=== PATIENT | male | born 1970 | race Caucasian/White ===

== ENCOUNTER 2017-10-02 06:51 | Day surgery (SDC) | payer OTHER ==
[~2017-10-02] VITALS: Ht 162.6 cm; Wt 83.9 kg
[2017-10-02] VITALS (15 sets, daily range): BP systolic 112–179; BP diastolic 83–110
[2017-10-02] MEDS ORDERED: HEParin (CATH LAB) 2,000 ML IV ONE (06:58)
[2017-10-02] MEDS: NS IV 1000 ML 1,000 ML IV SCH (07:18)
[2017-10-02 07:24] LABS: HEMOGLOBIN 15.1 G/DL (13.3-17.7); MEAN PLATELET VOLUME 9.7 FL (7.4-10.4); RED BLOOD COUNT 5.08 10^6/uL (4.35-5.85); RED CELL DISTRIBUTION WIDTH 12.9 % (10.0-14.5); WHITE BLOOD COUNT 8.6 10^3/uL (4.3-11.0)
[2017-10-02 07:32] LABS: INR 0.9 (0.8-1.4); PROTHROMBIN TIME PATIENT 12.3 SEC (12.2-14.7)
[2017-10-02] MEDS ORDERED: INSU100V5 SQ (07:38)
[2017-10-02] MEDS ORDERED: ATOR40TA70 PO (07:38)
[2017-10-02] MEDS ORDERED: BUDE10.22 IH (07:38)
[2017-10-02] MEDS ORDERED: INSU100V SQ ×3 (07:38)
[2017-10-02] MEDS ORDERED: AMLO1TAB PO (07:38)
[2017-10-02] MEDS ORDERED: SITA1TAB6 PO (07:38)
[2017-10-02] MEDS ORDERED: MELA5TAB21 PO (07:38)
[2017-10-02] MEDS ORDERED: ASCO10006 PO (07:38)
[2017-10-02] MEDS ORDERED: BUPR150T9 PO ×2 (07:38)
[2017-10-02] MEDS ORDERED: NITR0.4T39 SL (07:38)
[2017-10-02] MEDS ORDERED: MULT-517 PO (07:38)
[2017-10-02] MEDS ORDERED: BUSP15TA60 PO (07:38)
[2017-10-02] MEDS ORDERED: RT-ALBUINH IH (07:38)
[2017-10-02] MEDS ORDERED: METH-336 PO (07:38)
[2017-10-02] MEDS ORDERED: MAGN250T13 PO (07:38)
[2017-10-02] MEDS ORDERED: ALPR0.25 PO (07:38)
[2017-10-02] MEDS ORDERED: METO-387 PO (07:39)
[2017-10-02 07:40] LABS: ALANINE AMINOTRANSFERASE 35 U/L (0-55); ALBUMIN 4.7 GM/DL (3.2-4.5); ALKALINE PHOSPHATASE 61 U/L (40-136); BILIRUBIN,TOTAL 0.5 MG/DL (0.1-1.0); BUN/CREATININE RATIO 14; CALCIUM 9.8 MG/DL (8.5-10.1); CARBON DIOXIDE 26 MMOL/L (21-32); CHLORIDE 102 MMOL/L (98-107); CHOLESTEROL 123 MG/DL (< 200); CREATININE SERUM 0.95 MG/DL (0.60-1.30); GFR ESTIMATED > 60; GLUCOSE 179 MG/DL (70-105); HDL CHOLESTEROL 41 MG/DL (40-60); POTASSIUM 3.5 MMOL/L (3.6-5.0); SODIUM 139 MMOL/L (135-145); TOTAL PROTEIN 7.7 GM/DL (6.4-8.2); TRIGLYCERIDES 130 MG/DL (<150); VLDL CHOLESTEROL 26 MG/DL (5-40)
[2017-10-02] MEDS ORDERED: METO-351 PO (07:44)
[2017-10-02] MEDS ORDERED: diphenhydrAMINE 50 MG/ML INJ (BENADRYL) ONE (07:50)
[2017-10-02] MEDS ORDERED: fentaNYL INJECTION 100 MCG/2 ML AMP ONE (07:50)
[2017-10-02] MEDS ORDERED: MIDAZOLAM 5 MG/5 ML (VERSED) VIAL ONE (07:50)
[2017-10-02] MEDS ORDERED: LIDOCAINE 1% INJ 50 ML (XYLOCAINE) VIAL ONE (08:08)
[2017-10-02] MEDS ORDERED: HEParin 1000 UNIT/ML (10ML VIAL) FOR BOLUS ONE (08:22)
[2017-10-02] MEDS ORDERED: NITRO DRIP 25000 MCG/D5W 250 ML IV ONE (08:22)
[2017-10-02] MEDS ORDERED: EPTIFIBATIDE BOLUS 20 ML IV ONE (08:22)
[2017-10-02] MEDS ORDERED: CLOPIDOGREL 300 MG (PLAVIX) TABLET PO ONE (08:50)
[2017-10-02] MEDS ORDERED: ASPIRIN 81 MG CHEW (CHILDREN'S ASA) ONE (08:50)
[2017-10-02] MEDS ORDERED: NS IV 1000 ML 1,000 ML IV SCH (09:08)
--- NOTE | 2017-10-02 09:08 | Cardiac Procedure Note-CS/ASA ---
Pre-Procedure Note Pre-Op Procedure Note H&P Reviewed The H&P was reviewed, patient examined and no changes noted. Date H&P Reviewed: Oct 02, 2017 Time H&P Reviewed: 08:05 Conscious Sedation Pre-Proced Time Reviewed: 08:05 ASA Class: 3 Airway Mallampati Classification: (ho-chunk appropriate class) I. II. III, IV Lungs Heart ASA score ASA 1: a normal healthy patient ASA 2: a patient with a mild systemic disease (mid diabetes, controlled hypertension, obesity ASA 3: a patient with a severe systemic disease that limits activity (angina , COPD, prior Myocardial infarction) ASA 4: a patient with an incapacitating disease that is a constant threat to life (CHF, renal failure) ASA 5: a moribund patient not expected to survive 24 hrs. (ruptured aneurysm) ASA 6: a declared brain patient whose organs are being harvested. For emergent operations, add the letter E after the classification Grade 2 Sedation Plan: Analgesia, Amnesia, Plan communicated to team members, Discussed options with patient/fam, Discussed risks with patient/fam Note The patient is an appropriate candidate to undergo the planned procedure, sedation, and anesthesia. The patient immediately re-assessed prior to indication. TAMMY HANNON MD FACP FAC CCDS Oct 02, 2017 09:08
[2017-10-02] MEDS ORDERED: PATIENT MAY USE OWN MEDS, ALL PO SCH (09:15)
--- NOTE | 2017-10-02 10:30 | CARDIAC CATHETERIZATION ---
DATE OF SERVICE: 10/02/2017 CARDIAC CATHETERIZATION AND CORONARY INTERVENTION REPORT HISTORY: The patient is a 47-year-old man who has a history of mid right coronary artery stenting at age 25, when he had presented with a heart attack. He is currently experiencing symptoms suggestive of increasing angina. Cardiac catheterization was carried out after having obtained an informed consent. PROCEDURE: He was brought to the cardiac catheterization laboratory in a fasting state. Right groin was prepared and draped in usual sterile fashion. 1% Lidocaine was used as local anesthesia. Modified Seldinger technique was used to advance a 5-Greenlandic sheath in right femoral artery. A 5-Greenlandic JL3.5 catheter was used for left coronary angiography. A 5-Greenlandic JR4 catheter used for right coronary angiography. A 5-Greenlandic pigtail catheter was used for left heart catheterization, left ventricular coronary angiography. PERCUTANEOUS INTERVENTION TO THE DISTAL RIGHT CORONARY ARTERY: Following completion of the diagnostic procedure, we carried out percutaneous intervention to an 80 to 90% stenosis in the distal posterolateral branch of the right coronary artery. This appeared to be the culprit lesion in causing the patient's angina pectoris. We used a 6-Greenlandic JR4 guide catheter with side holes. We advanced a choICE floppy wire across the lesion and the tip was placed in the distal vessel. We carried out balloon angioplasty with Emerge 1.5 x 12 mm balloon and then stented the lesion with a Mini Vision 2.0 x 15 mm stent. Subsequent angiography revealed 0% residual stenosis and flow throughout the vessel is normal (RAUL 3). He tolerated the procedure well. Angiography of the right femoral artery was carried through the sheath after removal of angioplasty equipment. Mynx was used to achieve hemostasis. HEMODYNAMICS: Left ventricular end-diastolic pressure following coronary angiography was 12 mmHg. There was no significant pressure gradient on pullback across the aortic valve. Ascending aortic pressure was 136/90 with a mean of 111 mmHg. LEFT VENTRICULAR ANGIOGRAPHY: Left ventricular angiography was carried out in the right anterior oblique projection. Global left ventricular systolic function appears normal. No regional wall motion is seen on this view. There does not appear to be significant mitral regurgitation. Left ventricular ejection fraction is approximately 65%. CORONARY ANGIOGRAPHY: Left main coronary artery is free of significant disease. Left anterior descending artery does not exhibit significant disease. Left circumflex artery is small and nondominant and does not exhibit significant disease. Right coronary artery is dominant and has a patent stent in its mid portion, which is known to be a Gianturco-Roubin stent placed in the 1995. The size of the stent is not known. This stent does not exhibit significant in-stent restenosis. The femoral posterolateral branch of the right coronary artery had 80 to 90% proximal to mid vessel stenosis to which successful intervention was carried out as detailed above. Following deployment of a Mini Vision 2.0 x 15 mm stent, there is no significant residual stenosis and flow throughout the vessel is normal. CONCLUSIONS: 1. Coronary artery disease consisting of 80 to 90% stenosis in the terminal posterolateral branch of the right coronary artery to which successful percutaneous intervention was carried out. Following deployment of a Mini Vision 2.0 x 15 mm stent, there is no significant residual stenosis. A Gianturco-Roubin stent in the mid right coronary artery is found to be patent and without significant in-stent restenosis. The rest of the coronary vessels have mild plaque. 2. Normal left ventricular end-diastolic pressure. 3. Normal left ventricular systolic function with left ventricular ejection fraction of approximately 65%. DISCUSSION AND RECOMMENDATIONS: Aspirin is being continued. Beta blockers are being continued. Plavix has been added to the regimen. Statin therapy will be continued. Job ID: [id number] DocumentID: [id number] Dictated Date: 10/02/2017 09:03:35 Cook Dinner Date: 10/02/2017 10:30:01 Dictated By: TAMMY HANNON MD, MA, FACP, FACC,
[2017-10-02] MEDS ORDERED: INSULIN LISPRO SQ SCH ×2 (12:00→17:00)
[2017-10-02] MEDS ORDERED: ALPRAZolam 0.25 MG (XANAX) TAB PO PRN (13:13)
[2017-10-02] MEDS ORDERED: ACETAMINOPHEN 325 MG TABLET ONE (13:26)
[2017-10-02] MEDS ORDERED: ACETAMINOPHEN 325 MG TABLET PO PRN (13:45)
[2017-10-02] MEDS ORDERED: RT-ALBUTEROL SULF 2.5 MG/3 ML PRE-MIX VIAL IH PRN (14:15)
[2017-10-02] MEDS ORDERED: NITROGLYCERIN 0.4 MG SL TABS BTL 25'S SL PRN (14:15)
[2017-10-02] MEDS ORDERED: buPROPion SR 150 MG (WELLBUTRIN SR) TAB PO SCH (21:00)
[2017-10-02] MEDS ORDERED: SYMBICORT 160/4.5 MCG INHALER 6 GM (NON-FORMULARY) IH SCH (21:00)
[2017-10-02] MEDS ORDERED: ASCORBIC ACID (VIT C) 500 MG TABLET PO SCH (21:00)
[2017-10-02] MEDS ORDERED: MELATONIN 3 MG TABLET PO SCH (21:00)
[2017-10-02] MEDS ORDERED: inSUlin DETERMIR 1000 UNITS/10 ML VIAL (LEVEMIR) SQ SCH (21:00)
[2017-10-03] VITALS: BP 130/80
[2017-10-03 04:00] VITALS: BP 149/94
[2017-10-03 04:22] LABS: HEMOGLOBIN 13.5 G/DL (13.3-17.7); MEAN PLATELET VOLUME 9.5 FL (7.4-10.4); RED BLOOD COUNT 4.58 10^6/uL (4.35-5.85); RED CELL DISTRIBUTION WIDTH 13.2 % (10.0-14.5); WHITE BLOOD COUNT 6.7 10^3/uL (4.3-11.0)
[2017-10-03] MEDS: NS IV 1000 ML 1,000 ML IV SCH (04:31)
[2017-10-03 04:50] LABS: BUN/CREATININE RATIO 13; CALCIUM 8.9 MG/DL (8.5-10.1); CARBON DIOXIDE 24 MMOL/L (21-32); CHLORIDE 105 MMOL/L (98-107); CREATININE SERUM 0.76 MG/DL (0.60-1.30); GFR ESTIMATED > 60; GLUCOSE 208 MG/DL (70-105); POTASSIUM 3.4 MMOL/L (3.6-5.0); SODIUM 139 MMOL/L (135-145)
[2017-10-03] MEDS ORDERED: MULTIVIT W/MINERALS TAB (THERAGRAN M) PO SCH (07:00)
[2017-10-03] MEDS ORDERED: INSULIN LISPRO SQ SCH (07:00)
--- NOTE | 2017-10-03 08:30 | Progress Note-Cardiology ---
Cardiology SOAP Progress Note Subjective: Up ambulating in the rooms. No c/o CP, dyspnea, palpitations, syncope or near syncope. No c/o right groin discomfort. States he is feeling much better. Objective: I&O/Vital Signs 10/03/17 10/03/17 10/03/17 10/03/17 07:00 08:50 10:05 10:58 Temp 97.3 Pulse 80 88 Resp 16 B/P (MAP) 158/103 (121) 143/64 (90) Pulse Ox 97 O2 Delivery Room Air Weight (Pounds): 185 Weight (Ounces): 0.0 Weight (Calculated Kilograms): 83.546395 Side: right Groin site without hematoma: Yes Condition: DP/PT pulses palpable, extremity w/d/p Bruising: mild bruising Constitutional: AAO x 3 Respiratory: No accessory muscle use, No respiratory distress; chest expansion is symmetric, chest is bilaterally symmetric, lungs clear to auscultation Cardiovascular: regular rate-rhythm; No JVD; S1 and S2 Gastrointestional: No tender; soft, audible bowel sounds Extremities: no lower extremity edema bilateral Neurologic/Psychiatric: grossly intact Skin: No rash, No ulcerations Results/Procedures: Labs Laboratory Tests 10/02/17 21:23: Glucometer 106 10/03/17 04:05: White Blood Count 6.7, Red Blood Count 4.58, Hemoglobin 13.5, Hematocrit 39L, Mean Corpuscular Volume 86, Mean Corpuscular Hemoglobin 30, Mean Corpuscular Hemoglobin Concent 34, Red Cell Distribution Width 13.2, Platelet Count 234, Mean Platelet Volume 9.5, Sodium Level 139, Potassium Level 3.4L, Chloride Level 105, Carbon Dioxide Level 24, Anion Gap 10, Blood Urea Nitrogen 10, Creatinine 0.76, Estimat Glomerular Filtration Rate > 60, BUN/Creatinine Ratio 13, Glucose Level 208H, Calcium Level 8.9 Microbiology 10/02/17 MRSA Screen - Final, Complete MRSA not isolated Procedures S/P cardiac cath with successful intervention on 10-03-18. Please refer to Dr. Fofana's cardiac cath report for details. A/P: Assessment: CAD - Last card cath and cor intervention n 10-04-17: Coronary artery disease consisting of 80 to 90% stenosis in the terminal posterolateral branch of the right coronary artery to which successful percutaneous intervention was carried out. Following deployment of a Mini Vision 2.0 x 15 mm stent, there is no significant residual stenosis. A Gianturco-Roubin stent in the mid right coronary artery is found to be patent and without significant in-stent restenosis. The rest of the coronary vessels have mild plaque. Normal left ventricular end-diastolic pressure. Normal left ventricular systolic function with left ventricular ejection fraction of approximately 65% H/O NE at age 25 DM 2 HTN HLP - followed by his PCP Asthma Chronic depression/anxiety Family h/o CAD (father had his first NE in his 50's) Plan: Discussed CV status with him OK to discharge home today Continue current medication regimen including Plavix, ASA, statin, and BB Out pt f/u in 2 weeks Physician Assessment Physician Assessment No cp or palp or syncope or groin discomfort Lungs: clear Cor: reg Ext: no c/c/e, mild bruising at site of cath access A&R * As documented in our note above that I updated (italics) and as noted below * I discussed at length with him and his his cath findings, interventions undertaken, current card regimen, and risk factor mod * Outpatient f/u is advised NAHUM MACHADO Oct 03, 2017 08:30 TAMMY FOFANA MD FACP FAC CCDS Oct 03, 2017 17:01
[2017-10-03] MEDS ORDERED: CLOP75TA28 PO (08:42)
[2017-10-03] MEDS ORDERED: ASPI-983 PO (08:42)
--- NOTE | 2017-10-03 08:44 | Discharge Inst-Cardiology ---
Discharge Inst-Cardiac Discharge Medications New Medications: Aspirin (Aspirin) 81 Mg Tab.chew 81 MG PO DAILY, #30 TAB 5 Refills Clopidogrel Bisulfate (Clopidogrel) 75 Mg Tablet 75 MG PO DAILY, #30 TAB 5 Refills Continued Medications: Albuterol Sulfate (Ventolin Hfa) 1 Puff Puff 2 PUFF IH PRN PRN for SHORTNESS OF BREATH, PUFF 1 PUFF = 90 MCG Alprazolam (Xanax) 0.25 Mg Tablet 0.125 MG PO PRN PRN for ANXIETY, TAB Amlodipine/Atorvastatin (Caduet 5 mg-10 mg Tablet) 1 Each Tablet 1 EACH PO DAILY, TAB Ascorbic Acid (Vitamin C) 1,000 Mg Tablet 1000 MG PO HS, TAB Atorvastatin Calcium (Atorvastatin Calcium) 40 Mg Tablet 40 MG PO DAILY, TAB Budesonide/Formoterol Fumarate (Symbicort 80-4.5 Mcg Inhaler) 10.2 Gm Hfa.aer.ad 2 PUFF IH BID, INHALER Bupropion HCl (Wellbutrin Sr) 150 Mg Tablet.er 150 MG PO DAILY for Smoking Cessation, TAB Bupropion HCl (Wellbutrin Sr) 150 Mg Tablet.er 300 MG PO HS for Smoking Cessation, TAB Buspirone HCl (Buspirone HCl) 15 Mg Tablet 60 MG PO DAILY, TAB Insulin Determir (Levemir) 1,000 Units/10 Ml Soln 60 UNITS SQ HS, EA Insulin Lispro (Humalog) 100 Unit/1 Ml Vial 16 UNIT SQ AM, VIAL Insulin Lispro (Humalog) 100 Unit/1 Ml Vial 18 UNIT SQ LUNCH, VIAL Insulin Lispro (Humalog) 100 Unit/1 Ml Vial 16 UNIT SQ DINNER, VIAL Magnesium Oxide (Magnesium) 250 Mg Tablet 250 MG PO EVENING, TAB Melatonin (Melatonin) 5 Mg Tab.ir.er 5 MG PO HS Methylcellulose (Fiber) 500 Mg Tablet 1000 MG PO DAILY, TAB Metoprolol Succinate (Toprol Xl) 25 Mg Tab.er.24h 25 MG PO DAILY, TAB Multivitamin (Men's Multi-Vitamin) 1 Each Tablet 2 EACH PO DAILY, TAB Nitroglycerin (Nitroglycerin) 0.4 Mg Tab.subl 0.4 MG SL UD PRN for CHEST PAIN, TAB Sitagliptin Phos/Metformin HCl (Janumet 50-1,000 mg Tablet) 1 Each Tablet 1 EACH PO BID, TAB New, Converted or Re-Newed RX: Transmitted to Pharmacy Patient Instructions Patient Instructions: Please schedule follow up appointment to see Dr. Fofana in 1-2 weeks MELODIE Deutsch today and tomorrow. May resume home dose on Thursday, October 05, 2017 NAHUM MACHADO Oct 03, 2017 08:44
[2017-10-03] MEDS ORDERED: ASPI-999 PO (08:45)
[2017-10-03 08:50] VITALS: BP 158/103
[2017-10-03] MEDS ORDERED: ATORVASTATIN PO SCH (09:00)
[2017-10-03] MEDS ORDERED: METHYLCELLULOSE (CITRUCEL) 500 MG CAPLET PO SCH (09:00)
[2017-10-03] MEDS ORDERED: busPIRone 15 MG (BUSPAR) TABLET PO SCH (09:00)
[2017-10-03] MEDS ORDERED: AMLODIPINE PO SCH (09:00)
[2017-10-03] MEDS ORDERED: ASPIRIN E.C. 81 MG (ECOTRIN) TAB PO SCH (09:00)
[2017-10-03] MEDS ORDERED: CLOPIDOGREL 75 MG (PLAVIX) TABLET PO SCH (09:00)
[2017-10-03] MEDS ORDERED: ATORVASTATIN 40 MG (LIPITOR) TABLET PO SCH (09:00)
[2017-10-03] MEDS ORDERED: buPROPion SR 150 MG (WELLBUTRIN SR) TAB PO SCH (09:00)
[2017-10-03 10:05] VITALS: BP 143/64
== END 2017-10-03 10:58 | disposition home or self-care (01) ==
LOC: CATH 06:51 → ICU 09:10 → CATH 10-03 10:58
PROVIDERS: ATTEND Internal Medicine Cardiovascular Disease
DX: I25.10 Atherosclerotic heart disease of native coronary artery without angina pectoris (principal); E11.9 Type 2 diabetes mellitus without complications; I10 Essential (primary) hypertension; E78.2 Mixed hyperlipidemia; R00.0 Tachycardia, unspecified; J45.909 Unspecified asthma, uncomplicated; F41.9 Anxiety disorder, unspecified; F32.9 Major depressive disorder, single episode, unspecified; G47.11 Idiopathic hypersomnia with long sleep time; I25.2 Old myocardial infarction; Z82.49 Family history of ischemic heart disease and other diseases of the circulatory system; Z95.5 Presence of coronary angioplasty implant and graft; Z79.02 Long term (current) use of antithrombotics/antiplatelets; Z79.82 Long term (current) use of aspirin; Z79.899 Other long term (current) drug therapy
CPT/HCPCS: 36415; 80048; 80053; 80061; 82962; 85027; 85610; 85730; 87081; 93005; 93458

== ENCOUNTER 2018-10-28 20:51 | Outpatient (CLI) | payer SELFPAY ==
[~2018-10-28 20:51] MED LIST: ALPR0.25 PO; AMLO1TAB PO; AMLO5TAB9 PO; ASCO10006 PO; ASCO500T7 PO; ASPI-983 PO; ASPI-999 PO; ATOR40TA70 PO; BUDE10.22 IH; BUPR150T9 PO; BUSP15TA60 PO; CLOP75TA28 PO; IBUP-2185 PO; INSU100I32 SQ; INSU100V SQ; INSU100V5 SQ; MAGN250T13 PO; MELA5TAB21 PO; METH-336 PO; METO-351 PO; METO-352 PO; METO-387 PO; MULT-517 PO; NITR0.4T39 SL; RT-ALBUINH IH; SITA1TAB6 PO
== END 2018-10-29 07:40 | disposition home or self-care (01) ==
LOC: SLEEP 20:51
PROVIDERS: ATTEND Otolaryngology Otolaryngology/Facial Plastic Surgery
DX: G47.33 Obstructive sleep apnea (adult) (pediatric) (principal); G47.10 Hypersomnia, unspecified; R06.83 Snoring; I10 Essential (primary) hypertension
CPT/HCPCS: 95810

== ENCOUNTER 2019-08-19 10:11 | Observation (INO) | payer SELFPAY ==
[2019-08-19] VITALS (11 sets, daily range): BP systolic 134–156; BP diastolic 84–94
[~2019-08-19] VITALS: Ht 160 cm; Wt 86.4 kg
[~2019-08-19 10:11] MED LIST changes: -METO-387 PO; +MTP25TSR PO
[2019-08-19] MEDS ORDERED: NS IV 1000 ML 1,000 ML ONE (10:15)
[2019-08-19] MEDS ORDERED: LIDOCAINE 1% INJ 20 ML 20 ML VIAL ONE (10:15)
[2019-08-19] MEDS ORDERED: HEParin (CATH LAB) 2,000 ML IV ONE (10:15)
[2019-08-19] MEDS ORDERED: NS IV 1000 ML 1,000 ML IV SCH (10:30)
[2019-08-19 10:48] LABS: HEMOGLOBIN 13.9 G/DL (13.3-17.7); MEAN PLATELET VOLUME 9.5 FL (7.4-10.4); RED CELL DISTRIBUTION WIDTH 13.1 % (10.0-14.5); WHITE BLOOD COUNT 7.8 10^3/uL (4.3-11.0)
[2019-08-19] MEDS ORDERED: BUSP30TA2 PO (11:05)
[2019-08-19] MEDS ORDERED: INSU100I32 SQ ×2 (11:05)
[2019-08-19] MEDS ORDERED: ISOS30TA3 PO (11:05)
[2019-08-19] MEDS ORDERED: TETR15DR73 OP (11:05)
[2019-08-19 11:06] LABS: INR 0.9 (0.8-1.4); PROTHROMBIN TIME PATIENT 12.7 SEC (12.2-14.7)
[2019-08-19 11:13] LABS: ALANINE AMINOTRANSFERASE 33 U/L (0-55); ALBUMIN 4.3 GM/DL (3.2-4.5); ALKALINE PHOSPHATASE 63 U/L (40-136); BILIRUBIN,TOTAL 0.4 MG/DL (0.1-1.0); BUN/CREATININE RATIO 16; CALCIUM 9.7 MG/DL (8.5-10.1); CARBON DIOXIDE 25 MMOL/L (21-32); CHLORIDE 104 MMOL/L (98-107); CHOLESTEROL 106 MG/DL (< 200); CREATININE SERUM 0.98 MG/DL (0.60-1.30); GFR ESTIMATED > 60; GLUCOSE 202 MG/DL (70-105); HDL CHOLESTEROL 36 MG/DL (40-60); SODIUM 138 MMOL/L (135-145); TOTAL PROTEIN 7.1 GM/DL (6.4-8.2); TRIGLYCERIDES 98 MG/DL (<150); VLDL CHOLESTEROL 20 MG/DL (5-40)
[2019-08-19] MEDS ORDERED: MIDAZOLAM 5 MG/5 ML (VERSED) VIAL ONE (12:55)
[2019-08-19] MEDS ORDERED: fentaNYL INJECTION 100 MCG/2 ML AMP ONE (12:55)
--- NOTE | 2019-08-19 13:12 | Cardiac Procedure Note-CS/ASA ---
Pre-Procedure Note Pre-Op Procedure Note H&P Reviewed The H&P was reviewed, patient examined and no changes noted. Date H&P Reviewed: Aug 19, 2019 Time H&P Reviewed: 13:11 Conscious Sedation Pre-Proced Time 13:11 ASA Score 3 For ASA 3 and 4: Consider anesthesia and medical clearance. Also, for patients with a history of failed moderate sedation consider anesthesia. Airway Lungs Heart ASA score ASA 1: a normal healthy patient ASA 2: a patient with a mild systemic disease (mid diabetes, controlled hypertension, obesity ASA 3: a patient with a severe systemic disease that limits activity (angina, COPD, prior Myocardial infarction) ASA 4: a patient with an incapacitating disease that is a constant threat to life (CHF, renal failure) ASA 5: a moribund patient not expected to survive 24 hrs. (ruptured aneurysm) ASA 6: a declared brain- patient whose organs are being harvested. For emergent operations, add the letter E after the classification Mallampati Classification Grade 2 Sedation Plan Analgesia, Amnesia, Plan communicated to team members, Discussed options with patient/fam, Discussed risks with patient/fam The patient is an appropriate candidate to undergo the planned procedure, sedation, and anesthesia. The patient immediately re-assessed prior to indication. TAMMY HANNON MD FACP FAC CCDS Aug 19, 2019 13:11
[2019-08-19] MEDS ORDERED: HEParin 1000 UNIT/ML (10ML VIAL) FOR BOLUS ONE (13:30)
[2019-08-19] MEDS ORDERED: EPTIFIBATIDE BOLUS 20 ML IV ONE (13:30)
[2019-08-19] MEDS ORDERED: NITRO DRIP 25000 MCG/D5W 250 ML IV ONE (13:35)
[2019-08-19] MEDS ORDERED: ASPIRIN 81 MG CHEW (CHILDREN'S ASA) ONE (13:51)
[2019-08-19] MEDS ORDERED: CLOPIDOGREL 300 MG (PLAVIX) TABLET PO ONE (13:51)
[2019-08-19] MEDS ORDERED: PATIENT MAY USE OWN MEDS, ALL PO SCH (14:15)
[2019-08-19] MEDS ORDERED: ALPRAZolam 0.25 MG (XANAX) TAB PO PRN (14:15)
[2019-08-19] MEDS ORDERED: NITROGLYCERIN 0.4 MG SL TABS BTL 25'S SL PRN (14:15)
--- NOTE | 2019-08-19 14:25 | CARDIAC CATHETERIZATION ---
DATE OF SERVICE: 08/19/2019 CARDIAC CATHETERIZATION REPORT The patient is a 49-year-old man who is known to have coronary artery disease. He has had recurrence of angina in the recent past. Cardiac catheterization was recommended. Informed consent was obtained for cardiac catheterization and possible ad hoc coronary intervention. DESCRIPTION OF PROCEDURE: He was brought to the cardiac catheterization laboratory in a fasting state. Right groin was prepared and draped in the usual sterile fashion. Lidocaine 1% was used for local anesthesia. Modified Seldinger technique was used to advance a 5-Fijian sheath in the right femoral artery, 5-Fijian JL3.5 catheter was used for left coronary angiography, 5-Fijian JR4 catheter for right coronary angiography, 5-Fijian pigtail catheter was used for left heart catheterization and left ventricular angiography. PERCUTANEOUS INTERVENTION TO RAMUS INTERMEDIUS ARTERY: Following completion of the diagnostic procedure, we carried out percutaneous intervention to an 80% mid vessel stenosis in the ramus intermedius. We exchanged the sheath over a wire for a 6-Fijian sheath. We gave 5000 units of intravenous heparin. A double bolus of Integrilin was given during the procedure. We used a 6-Fijian JL3.5 guide catheter to engage the left coronary artery. We used a ChoICE floppy wire to cross the lesion in the ramus intermedius and the tip was placed in the distal vessel. We advanced Xience Izabella 2.25 x 8 mm stent. This was carefully positioned and the stent was deployed at 20 atmospheres. Subsequent angiography revealed 0% residual stenosis at the previous site of 80% stenosis. The patient tolerated the procedure well. Angiography of the right femoral artery had been carried out through the sheath at the beginning the procedure. At the end of the procedure, Mynx was used to achieve hemostasis. He tolerated the procedure well. HEMODYNAMICS: Left ventricular end-diastolic pressure following coronary angiography was 19 mmHg. There was no significant pressure gradient on pullback across the aortic valve. Ascending aortic pressure was 125/79 with a mean of 100 mmHg. CORONARY ANGIOGRAPHY: Left main coronary artery does not exhibit significant obstructive disease. Left anterior descending artery has diffuse mild plaques. Ramus intermedius has 80% mid vessel stenosis and a 40% to 50% proximal stenosis. The mid vessel stenosis was stented with Xience Izabella 2.25 x 8 mm stent with reduction of stenosis to 0% residual. Left circumflex artery is small and nondominant and does not exhibit significant disease. Right coronary artery is dominant and has a patent stent in its mid portion that is known to be Gianturco-Roubin that was placed several years ago, for which he does not know details. The terminal posterolateral branch of the right coronary artery has a patent stent in its proximal and mid portions. The mid to distal part of this vessel has approximately 50% stenosis. LEFT VENTRICULAR ANGIOGRAPHY: Left ventricular angiography was carried out in the right anterior oblique projection. Global left ventricular systolic function is normal. No regional wall motion abnormality is seen. Left ventricular ejection fraction approximately 60%. CONCLUSIONS: 1. Coronary artery disease consisting of 80% mid vessel stenosis of the ramus intermedius to be successful stenting was carried out with Izabella 2.25 x 8 mm stent today. There is a patent stent in the mid right coronary artery (known to be a Gianturco-Roubin stent) and a patent stent in the proximal and mid portions of the distal posterolateral branch of the right coronary (known to be Mini Vision 2.0 x 15 mm). The rest of the coronary vessels have mild to moderate disease. 2. Normal global left ventricular systolic function with ejection fraction approximately 60%. 3. Elevated left ventricular end-diastolic pressure. DISCUSSION AND RECOMMENDATIONS: Dual antiplatelet therapy is being continued. Risk factor modification has been reviewed. Outpatient followup is advised. He remains hospitalized for observation after today's intervention procedure. Job ID: [id number] DocumentID: [id number] Dictated Date: 08/19/2019 14:04:38 Pediatric Speech Therapist Date: 08/19/2019 14:24:41 Dictated By: TAMMY HANNON MD, MA, FACP, FACC, MTDD
[2019-08-19] MEDS: NS IV 1000 ML 1,000 ML IV SCH ×2 (14:43→19:23)
[2019-08-19] MEDS ORDERED: PATIENT MAY USE OWN MEDS, ALL MC SCH (15:00)
[2019-08-19] MEDS ORDERED: RT-ALBUTEROL INHALER HFA (PROAIR HFA) 8.5 GM IH PRN (15:45)
[2019-08-19] MEDS ORDERED: INSULIN LISPRO 20 UNIT SQ SCH (17:00)
[2019-08-19] MEDS: INSULIN LISPRO U SQ SCH (17:11)
[2019-08-19] MEDS: ASCORBIC ACID (VIT C) 500 MG TABLET PO SCH (17:16)
[2019-08-19] MEDS ORDERED: RT-ADVAIR HFA 115/21 MCG PER PUFF IH SCH (20:00)
[2019-08-19] MEDS: Insulin Degludec (Tresiba Flextouch U-100) SQ SCH (20:31)
[2019-08-19] MEDS: buPROPion SR 150 MG (WELLBUTRIN SR) TAB PO SCH (20:32)
[2019-08-19] MEDS: SYMBICORT 160/4.5 MCG INHALER IH SCH (20:32)
[2019-08-19] MEDS: MELATONIN 5 MG PO SCH (20:34)
[2019-08-19] MEDS ORDERED: NON-FORMULARY MEDICATION 1 EA EA (Melatonin 5 MG) PO SCH (21:00)
[2019-08-19] MEDS ORDERED: NON-FORMULARY MEDICATION 1 EA EA (Budesonide/Formoterol Fumarate (Symbicort 80-4.5 Mcg Inh IH SCH (21:00)
[2019-08-20] VITALS (7 sets, daily range): BP systolic 140–168; BP diastolic 73–103
[2019-08-20 03:44] LABS: HEMOGLOBIN 13.1 G/DL (13.3-17.7); MEAN PLATELET VOLUME 9.7 FL (7.4-10.4); RED CELL DISTRIBUTION WIDTH 13.2 % (10.0-14.5); WHITE BLOOD COUNT 7.8 10^3/uL (4.3-11.0)
[2019-08-20 04:06] LABS: BUN/CREATININE RATIO 15; CALCIUM 9.1 MG/DL (8.5-10.1); CARBON DIOXIDE 25 MMOL/L (21-32); CHLORIDE 104 MMOL/L (98-107); CREATININE SERUM 0.84 MG/DL (0.60-1.30); GFR ESTIMATED > 60; GLUCOSE 191 MG/DL (70-105); POTASSIUM 3.7 MMOL/L (3.6-5.0); SODIUM 138 MMOL/L (135-145)
[2019-08-20] MEDS ORDERED: TETRAHYDROZOLINE (VISINE) 0.05% 15 ML BTL OU PRN (06:45)
[2019-08-20] MEDS: ASCORBIC ACID (VIT C) 500 MG TABLET PO SCH ×2 (07:34→17:10)
[2019-08-20] MEDS: INSULIN LISPRO U SQ SCH ×3 (07:34→17:25)
[2019-08-20] MEDS: MULTIVIT W/MINERALS TAB (THERAGRAN M) PO SCH (07:35)
--- NOTE | 2019-08-20 07:43 | Progress Note - Cardiology ---
Cardiology SOAP Progress Note Subjective: Sitting up in bed. C/O mid-sternal chest pressure, rates it 2/10 on 0-10 pain scale. He reports it is constant and has been present since yesterday. It does not change with activity. It does not radiate. No c/o dyspnea, palpitations. No c/o right groin discomfort. Objective: I&O/Vital Signs 08/20/19 08/21/19 08/21/19 08/21/19 23:40 01:00 03:25 07:00 Temp 36.4 36.4 Pulse 84 73 80 62 Resp 18 20 B/P (MAP) 163/89 (113) 162/92 (115) Pulse Ox 100 98 O2 Delivery Room Air Room Air 08/21/19 08/21/19 08:00 09:35 Temp 36.3 Pulse 83 Resp 30 B/P (MAP) 144/86 (105) Pulse Ox 97 O2 Delivery Room Air 08/21/19 00:00 Intake Total 1350 ml Balance 1350 ml Weight (Pounds): 188 Weight (Ounces): 0.0 Weight (Calculated Kilograms): 85.529760 Side: right Groin site without hematoma: Yes Condition: DP/PT pulses palpable, extremity w/d/p Bruising: mild bruising Constitutional: AAO x 3, well-developed, well-nourished Respiratory: No accessory muscle use, No respiratory distress; chest expansion is symmetric, chest is bilaterally symmetric, lungs clear to auscultation Cardiovascular: regular rate-rhythm; No JVD; S1 and S2 Gastrointestional: No tender; audible bowel sounds Extremities: no lower extremity edema bilateral Neurologic/Psychiatric: grossly intact (moves all extremities) Skin: No rash on exposed areas, No ulcerations on exposed areas Results/Procedures: Labs Laboratory Tests 08/20/19 11:47: Glucometer 196H 08/20/19 16:01: Glucometer 261H 08/20/19 20:42: Glucometer 168H 08/21/19 03:15: White Blood Count 6.3, Red Blood Count 4.67, Hemoglobin 13.7, Hematocrit 41, Mean Corpuscular Volume 87, Mean Corpuscular Hemoglobin 29, Mean Corpuscular Hemoglobin Concent 34, Red Cell Distribution Width 13.0, Platelet Count 237, Mean Platelet Volume 9.6, Neutrophils (%) (Auto) 51, Lymphocytes (%) (Auto) 39, Monocytes (%) (Auto) 8, Eosinophils (%) (Auto) 2, Basophils (%) (Auto) 0, Neutrophils # (Auto) 3.2, Lymphocytes # (Auto) 2.5, Monocytes # (Auto) 0.5, Eosinophils # (Auto) 0.1, Basophils # (Auto) 0.0, Sodium Level 140, Potassium Level 3.8, Chloride Level 104, Carbon Dioxide Level 24, Anion Gap 12, Blood Urea Nitrogen 13, Creatinine 1.00, Estimat Glomerular Filtration Rate > 60, BUN/Creatinine Ratio 13, Glucose Level 248H, Calcium Level 9.5, Magnesium Level 2.0 Microbiology 08/19/19 MRSA Screen - Final, Complete MRSA not isolated Procedures S/P cardiac cath with successful intervention. Please refer to cardiac cath report of 08-19-2019 A/P: Assessment: CAD - consisting of 80% mid vessel stenosis of the ramus intermedius to be successful stenting was carried out with Izabella 2.25 x 8 mm stent. There is a patent stent in the mid right coronary artery (known to be a Gianturco-Roubin stent) and a patent stent in the proximal and mid portions of the distal posterolateral branch of the right coronary (known to be Mini Vision 2.0 x 15 mm). The rest of the coronary vessels have mild to moderate disease. Normal global left ventricular systolic function with ejection fraction approximately 60%. Elevated left ventricular end-diastolic pressure. Per cardiac cath of Aug Mild ARDEN and hypertension on sleep studies of October 2018. Currently is noncompliant with CPAP H/O HI at age 25 DM 2 HTN HLP - followed by his PCP Asthma Chronic depression/anxiety Family h/o CAD (father had his first HI in his 50's) Plan: S/P cardiac cath with successful intervention C/O non-specific chest discomfort Start PPI NAHUM MACHADO Aug 20, 2019 07:43
[2019-08-20] MEDS: SYMBICORT 160/4.5 MCG INHALER IH SCH ×2 (08:53→21:20)
[2019-08-20] MEDS: CLOPIDOGREL 75 MG (PLAVIX) TABLET PO SCH (08:54)
[2019-08-20] MEDS: BUSPIRONE HCL 15 MG PO SCH (08:55)
[2019-08-20] MEDS: ISOSORBIDE MONONITRATE 30 MG (IMDUR) TAB PO SCH (08:55)
[2019-08-20] MEDS: meTOproloL SUCCINATE 50 MG (TOPROL XL) TAB PO SCH (08:56)
[2019-08-20] MEDS: buPROPion SR 150 MG (WELLBUTRIN SR) TAB PO SCH ×2 (08:57→21:17)
[2019-08-20] MEDS: amLODIPine 5 MG (NORVASC) TAB PO SCH (08:58)
[2019-08-20] MEDS: ASPIRIN 81 MG CHEW (CHILDREN'S ASA) PO SCH (08:59)
[2019-08-20] MEDS ORDERED: PANTOPRAZOLE 40 MG (PROTONIX) TAB PO SCH (09:00)
[2019-08-20] MEDS ORDERED: MULTIVITAMIN PO SCH (09:00)
[2019-08-20] MEDS ORDERED: CLOPIDOGREL 75 MG (PLAVIX) TABLET PO SCH (09:00)
[2019-08-20] MEDS: Insulin Degludec (Tresiba Flextouch U-100) SQ SCH ×2 (09:02→21:20)
[2019-08-20] MEDS: METHYLCELLULOSE (CITRUCEL) 500 MG CAPLET PO SCH (09:03)
[2019-08-20] MEDS ORDERED: PANT40TA3 PO (09:18)
--- NOTE | 2019-08-20 09:26 | Discharge Inst-Cardiology ---
Discharge Inst-Cardiac Discharge Medications New Medications: Pantoprazole Sodium (Pantoprazole Sodium) 40 Mg Tablet.dr 40 MG PO DAILY, #30 TAB 5 Refills Continued Medications: Albuterol Sulfate (Ventolin Hfa) 1 Puff Puff 2 PUFF IH PRN PRN for SHORTNESS OF BREATH, PUFF 1 PUFF = 90 MCG Alprazolam (Xanax) 0.25 Mg Tablet 0.125 MG PO PRN PRN for ANXIETY, TAB Amlodipine Besylate (Amlodipine Besylate) 5 Mg Tablet 5 MG PO DAILY, #30 TAB 5 Refills Ascorbic Acid (Ascorbic Acid) 500 Mg Tablet 500 MG PO BID, TAB Aspirin (Aspirin EC) 81 Mg Tablet.dr 81 MG PO DAILY, TAB Atorvastatin Calcium (Atorvastatin Calcium) 40 Mg Tablet 40 MG PO HS, TAB Budesonide/Formoterol Fumarate (Symbicort 80-4.5 Mcg Inhaler) 10.2 Gm Hfa.aer.ad 2 PUFF IH BID, INHALER Bupropion HCl (Wellbutrin Sr) 150 Mg Tablet.er 150 MG PO DAILY for Smoking Cessation, TAB Bupropion HCl (Wellbutrin Sr) 150 Mg Tablet.er 300 MG PO HS for Smoking Cessation, TAB Buspirone HCl (Buspirone HCl) 30 Mg Tablet 60 MG PO DAILY, TAB Clopidogrel Bisulfate (Clopidogrel) 75 Mg Tablet 75 MG PO DAILY, TAB Insulin Degludec (Tresiba Flextouch U-100) 100 Unit/1 Ml Insuln.pen 40 UNIT SQ DAILY, EA Insulin Degludec (Tresiba Flextouch U-100) 100 Unit/1 Ml Insuln.pen 20 UNIT SQ HS, EA Insulin Lispro (Humalog) 100 Unit/1 Ml Vial 20 UNIT SQ TIDWM, VIAL Isosorbide Mononitrate (Isosorbide Mononitrate ER) 30 Mg Tab.er.24h 30 MG PO DAILY, TAB Magnesium Oxide (Magnesium) 250 Mg Tablet 250 MG PO HS, TAB Melatonin (Melatonin) 5 Mg Tab.ir.er 5 MG PO HS Methylcellulose (Fiber) 500 Mg Tablet 1000 MG PO DAILY, TAB Metoprolol Succinate (Toprol Xl) 50 Mg Tab.er.24h 50 MG PO DAILY, #30 TAB 5 Refills Multivitamin (Men's Multi-Vitamin) 1 Each Tablet 2 EACH PO DAILY, TAB Nitroglycerin (Nitroglycerin) 0.4 Mg Tab.subl 0.4 MG SL UD PRN for CHEST PAIN, TAB Sitagliptin Phos/Metformin HCl (Janumet 50-1,000 mg Tablet) 1 Each Tablet 1 EACH PO BID, TAB Tetrahydrozoline HCl/Zn Sulf (Visine Allergy Relief Drop) 15 Ml Drops 1 DROP OP DAILY PRN for IRRIGATION, DROPS New, Converted or Re-Newed RX: Transmitted to Pharmacy Patient Instructions Patient Instructions: Hold Janumet until Thursday, August 22, 2019 and then resume previous dose Please schedule follow up appointment to see Dr. Fofana next week NAHUM MACHADO Aug 20, 2019 09:25
--- NOTE | 2019-08-20 10:29 | Progress Note - Cardiology ---
Cardiology SOAP Progress Note Subjective: Vague upper and mid chest discomfort also involving shoulders, mild, continuous for more than 24 hours, w/o aggravating or relieving factors, dull, w/o associated symptoms No cp or groin discomfort or palp or leg swelling No n/v/d No focal weakness Objective: I&O/Vital Signs 08/20/19 08/20/19 08/20/19 08/20/19 00:00 00:00 01:00 03:45 Temp 36.7 36.2 Pulse 85 67 70 Resp 21 18 B/P (MAP) 156/98 (117) 146/73 (97) Pulse Ox 97 99 O2 Delivery Room Air Room Air Room Air 08/20/19 08/20/19 08/20/19 08/20/19 06:40 07:47 07:47 08:00 Temp 36.4 36.4 Pulse 67 76 Resp 14 B/P (MAP) 155/103 (120) Pulse Ox 98 97 O2 Delivery Room Air 08/20/19 00:00 Intake Total 1400 ml Output Total 600 ml Balance 800 ml Weight (Pounds): 188 Weight (Ounces): 0.0 Weight (Calculated Kilograms): 85.548151 Side: right Groin site without hematoma: Yes Condition: DP/PT pulses palpable, extremity w/d/p Bruising: mild bruising Constitutional: AAO x 3, well-developed, well-nourished Respiratory: No accessory muscle use, No respiratory distress; chest expansion is symmetric, chest is bilaterally symmetric, lungs clear to auscultation Cardiovascular: regular rate-rhythm; No JVD; S1 and S2 Gastrointestional: No tender; audible bowel sounds Extremities: no lower extremity edema bilateral Neurologic/Psychiatric: grossly intact (moves all extremities) Skin: No rash on exposed areas, No ulcerations on exposed areas Results/Procedures: Labs Laboratory Tests 08/19/19 10:38: White Blood Count 7.8, Red Blood Count 4.66, Hemoglobin 13.9, Hematocrit 40, Mean Corpuscular Volume 87, Mean Corpuscular Hemoglobin 30, Mean Corpuscular Hemoglobin Concent 35, Red Cell Distribution Width 13.1, Platelet Count 266, Mean Platelet Volume 9.5, Prothrombin Time 12.7, INR Comment 0.9, Activated Partial Thromboplast Time 30, Sodium Level 138, Potassium Level 4.0, Chloride Level 104, Carbon Dioxide Level 25, Anion Gap 9, Blood Urea Nitrogen 16, Creatinine 0.98, Estimat Glomerular Filtration Rate > 60, BUN/Creatinine Ratio 16, Glucose Level 202H, Calcium Level 9.7, Corrected Calcium 9.5, Total Bilirubin 0.4, Aspartate Amino Transf (AST/SGOT) 18, Alanine Aminotransferase (ALT/SGPT) 33, Alkaline Phosphatase 63, Total Protein 7.1, Albumin 4.3, Triglycerides Level 98, Cholesterol Level 106, LDL Cholesterol Direct 60, VLDL Cholesterol 20, HDL Cholesterol 36L 08/19/19 17:10: Glucometer 129H 08/20/19 03:33: White Blood Count 7.8, Red Blood Count 4.56, Hemoglobin 13.1L, Hematocrit 40, Mean Corpuscular Volume 87, Mean Corpuscular Hemoglobin 29, Mean Corpuscular Hemoglobin Concent 33, Red Cell Distribution Width 13.2, Platelet Count 242, Mean Platelet Volume 9.7, Sodium Level 138, Potassium Level 3.7, Chloride Level 104, Carbon Dioxide Level 25, Anion Gap 9, Blood Urea Nitrogen 13, Creatinine 0.84, Estimat Glomerular Filtration Rate > 60, BUN/Creatinine Ratio 15, Glucose Level 191H, Calcium Level 9.1 Laboratory Tests 08/19/19 10:38 08/20/19 03:33 A/P: Assessment: CAD - cardiac cath of August 19, 2019: 80% mid vessel stenosis of the ramus intermedius to be successful stenting was carried out with Izabella 2.25 x 8 mm stent. There is a patent stent in the mid right coronary artery (known to be a Gianturco-Roubin stent) and a patent stent in the proximal and mid portions of the distal posterolateral branch of the right coronary (known to be Mini Vision 2.0 x 15 mm). The rest of the coronary vessels have mild to moderate disease. Normal global left ventricular systolic function with ejection fraction approximately 60%. Elevated left ventricular end-diastolic pressure. Vague chest discomfort Mild ARDEN and hypertension on sleep studies of October 2018. Currently is nonc ompliant with CPAP H/O [place] at age 25 DM 2 HTN HLP - followed by his PCP Asthma Chronic depression/anxiety Family h/o CAD (father had his first AK in his 50's) Plan: * I had a long and detailed discussion with him regarding cath findings, interventions undertaken, and treatment plan * Has vague epigastric and chest discomfort w/o any evidence of ACS. Will keep in the hosp for now. Add famotidine * Monitor labs * Increase ambulation TAMMY HANNON MD FACP FAC CCDS Aug 20, 2019 10:29
[2019-08-20] MEDS ORDERED: FAMOTIDINE 20 MG (PEPCID) TABLET PO NR (10:32)
[2019-08-20] MEDS: NS IV 1000 ML 1,000 ML IV SCH ×2 (11:16→20:26)
[2019-08-20] MEDS: FAMOTIDINE 20 MG (PEPCID) TABLET PO SCH (21:17)
[2019-08-20] MEDS: MELATONIN 5 MG PO SCH (21:20)
[2019-08-21 03:25] VITALS: BP 162/92
[2019-08-21 03:27] LABS: BASOPHILS % (AUTO) 0 % (0-10); EOSINOPHILS # (AUTO) 0.1 10^3/uL (0.0-0.3); EOSINOPHILS % (AUTO) 2 % (0-10); HEMATOCRIT 41 % (40-54); HEMOGLOBIN 13.7 G/DL (13.3-17.7); LYMPHOCYTES # (AUTO) 2.5 X 10^3 (1.0-4.0); LYMPHOCYTES % (AUTO) 39 % (12-44); MEAN CORPUSCULAR HEMOGLOBIN 29 PG (25-34); MEAN CORPUSCULAR HGB CONC 34 G/DL (32-36); MEAN CORPUSCULAR VOLUME 87 FL (80-99); MEAN PLATELET VOLUME 9.6 FL (7.4-10.4); MONOCYTES # (AUTO) 0.5 X 10^3 (0.0-1.0); MONOCYTES % (AUTO) 8 % (0-12); NEUTROPHILS # (AUTO) 3.2 X 10^3 (1.8-7.8); NEUTROPHILS % (AUTO) 51 % (42-75); PLATELET COUNT 237 10^3/uL (130-400); WHITE BLOOD COUNT 6.3 10^3/uL (4.3-11.0)
[2019-08-21 03:46] LABS: BUN/CREATININE RATIO 13; CALCIUM 9.5 MG/DL (8.5-10.1); CARBON DIOXIDE 24 MMOL/L (21-32); CHLORIDE 104 MMOL/L (98-107); GFR ESTIMATED > 60; GLUCOSE 248 MG/DL (70-105); POTASSIUM 3.8 MMOL/L (3.6-5.0); SODIUM 140 MMOL/L (135-145)
[2019-08-21] MEDS: NS IV 1000 ML 1,000 ML IV SCH (05:56)
[2019-08-21] MEDS: MULTIVIT W/MINERALS TAB (THERAGRAN M) PO SCH (07:41)
[2019-08-21] MEDS: INSULIN LISPRO U SQ SCH (07:42)
[2019-08-21] MEDS: ASCORBIC ACID (VIT C) 500 MG TABLET PO SCH (07:44)
[2019-08-21 08:00] VITALS: BP 144/86
[2019-08-21] MEDS: ASPIRIN 81 MG CHEW (CHILDREN'S ASA) PO SCH (08:10)
[2019-08-21] MEDS: FAMOTIDINE 20 MG (PEPCID) TABLET PO SCH (08:10)
[2019-08-21] MEDS: SYMBICORT 160/4.5 MCG INHALER IH SCH (08:11)
[2019-08-21] MEDS: ISOSORBIDE MONONITRATE 30 MG (IMDUR) TAB PO SCH (08:12)
[2019-08-21] MEDS: amLODIPine 5 MG (NORVASC) TAB PO SCH (08:13)
[2019-08-21] MEDS: CLOPIDOGREL 75 MG (PLAVIX) TABLET PO SCH (08:14)
[2019-08-21] MEDS: buPROPion SR 150 MG (WELLBUTRIN SR) TAB PO SCH (08:16)
[2019-08-21] MEDS: meTOproloL SUCCINATE 50 MG (TOPROL XL) TAB PO SCH (08:17)
[2019-08-21] MEDS: BUSPIRONE HCL 15 MG PO SCH (08:18)
[2019-08-21] MEDS: Insulin Degludec (Tresiba Flextouch U-100) SQ SCH (08:19)
--- NOTE | 2019-08-21 09:50 | Progress Note - Cardiology ---
Cardiology SOAP Progress Note Subjective: Sitting up in bed. States his chest/epigastric discomfort has improved to a 0.5/10. He denies any c/o dyspnea, palpitations, syncope or near syncope. Objective: I&O/Vital Signs Weight (Pounds): 188 Weight (Ounces): 0.0 Weight (Calculated Kilograms): 85.290889 Side: right Groin site without hematoma: Yes Condition: DP/PT pulses palpable, extremity w/d/p Bruising: mild bruising Constitutional: AAO x 3, well-developed, well-nourished Respiratory: No accessory muscle use, No respiratory distress; chest expansion is symmetric, chest is bilaterally symmetric, lungs clear to auscultation Cardiovascular: regular rate-rhythm; No JVD; S1 and S2 Gastrointestional: No tender; audible bowel sounds Extremities: no lower extremity edema bilateral Neurologic/Psychiatric: grossly intact (moves all extremities) Skin: No rash on exposed areas, No ulcerations on exposed areas Results/Procedures: Labs Microbiology 08/19/19 MRSA Screen - Final, Complete MRSA not isolated A/P: Assessment: CAD - cardiac cath of August 19, 2019: 80% mid vessel stenosis of the ramus intermedius to be successful stenting was carried out with Izabella 2.25 x 8 mm stent. There is a patent stent in the mid right coronary artery (known to be a Gianturco-Roubin stent) and a patent stent in the proximal and mid portions of the distal posterolateral branch of the right coronary (known to be Mini Vision 2.0 x 15 mm). The rest of the coronary vessels have mild to moderate disease. Normal global left ventricular systolic function with ejection fraction approximately 60%. Elevated left ventricular end-diastolic pressure. Vague chest discomfort Mild ARDEN and hypertension on sleep studies of October 2018. Currently is noncompliant with CPAP H/O [place] at age 25 DM 2 HTN HLP - followed by his PCP Asthma Chronic depression/anxiety Family h/o CAD (father had his first PA in his 50's) Plan: * We have had a long and detailed discussion with him regarding cath findings, interventions undertaken, and treatment plan * Epigastric discomfort has improved with the addition of famotidine * OK to discharge home today * Out pt f/u * Continue current medications including ASA, Plavix, statin and BB NAHUM MACHADO Aug 21, 2019 09:50
[2019-08-21] MEDS ORDERED: FAMO20TA3 PO (09:51)
[2019-08-21] MEDS: METHYLCELLULOSE (CITRUCEL) 500 MG CAPLET PO SCH (10:23)
--- NOTE | 2019-08-21 14:49 | Progress Note - Cardiology ---
Cardiology SOAP Progress Note Subjective: No cp today Feels well No palp or syncope No n/v/d No focal weakness No groin discomfort Objective: I&O/Vital Signs 08/21/19 08/21/19 08/21/19 08/21/19 03:25 07:00 08:00 08:00 Temp 36.4 Pulse 80 62 83 Resp 20 30 B/P (MAP) 162/92 (115) 144/86 (105) Pulse Ox 98 97 97 O2 Delivery Room Air Room Air Room Air 08/21/19 08/21/19 08/21/19 09:35 12:00 12:55 Temp 36.3 Pulse 72 Resp 19 B/P (MAP) O2 Delivery Room Air 08/21/19 00:00 Intake Total 1350 ml Balance 1350 ml Weight (Pounds): 188 Weight (Ounces): 0.0 Weight (Calculated Kilograms): 85.940985 Side: right Groin site without hematoma: Yes Condition: DP/PT pulses palpable, extremity w/d/p Bruising: mild bruising Constitutional: AAO x 3, well-developed, well-nourished Respiratory: No accessory muscle use, No respiratory distress; chest expansion is symmetric, chest is bilaterally symmetric, lungs clear to auscultation Cardiovascular: regular rate-rhythm; No JVD; S1 and S2 Gastrointestional: No tender; audible bowel sounds Extremities: no lower extremity edema bilateral Neurologic/Psychiatric: grossly intact (moves all extremities) Skin: No rash on exposed areas, No ulcerations on exposed areas Results/Procedures: Labs Laboratory Tests 08/20/19 16:01: Glucometer 261H 08/20/19 20:42: Glucometer 168H 08/21/19 03:15: White Blood Count 6.3, Red Blood Count 4.67, Hemoglobin 13.7, Hematocrit 41, Mean Corpuscular Volume 87, Mean Corpuscular Hemoglobin 29, Mean Corpuscular Hemoglobin Concent 34, Red Cell Distribution Width 13.0, Platelet Count 237, Mean Platelet Volume 9.6, Neutrophils (%) (Auto) 51, Lymphocytes (%) (Auto) 39, Monocytes (%) (Auto) 8, Eosinophils (%) (Auto) 2, Basophils (%) (Auto) 0, Neutrophils # (Auto) 3.2, Lymphocytes # (Auto) 2.5, Monocytes # (Auto) 0.5, Eosinophils # (Auto) 0.1, Basophils # (Auto) 0.0, Sodium Level 140, Potassium Level 3.8, Chloride Level 104, Carbon Dioxide Level 24, Anion Gap 12, Blood Urea Nitrogen 13, Creatinine 1.00, Estimat Glomerular Filtration Rate > 60, BUN/Creatinine Ratio 13, Glucose Level 248H, Calcium Level 9.5, Magnesium Level 2.0 Microbiology 08/19/19 MRSA Screen - Final, Complete MRSA not isolated A/P: Assessment: CAD - cardiac cath of August 19, 2019: 80% mid vessel stenosis of the ramus intermedius to be successful stenting was carried out with Izabella 2.25 x 8 mm stent. There is a patent stent in the mid right coronary artery (known to be a Gianturco-Roubin stent) and a patent stent in the proximal and mid portions of the distal posterolateral branch of the right coronary (known to be Mini Vision 2.0 x 15 mm). The rest of the coronary vessels have mild to moderate disease. Normal global left ventricular systolic function with ejection fraction approximately 60%. Elevated left ventricular end-diastolic pressure. Vague chest discomfort, non-cardiac, etiology undetermined, resolved Mild ARDEN and hypertension on sleep studies of October 2018. Currently is noncompliant with CPAP H/O [place] at age 25 DM 2 HTN HLP - followed by his PCP Asthma Chronic depression/anxiety Family h/o CAD (father had his first FL in his 50's) Plan: * We have had a long and detailed discussion with him regarding cath findings, interventions undertaken, and treatment plan * Epigastric discomfort has improved with the addition of famotidine * OK to discharge home today * Out pt f/u * Continue current medications including ASA, Plavix, statin and BB TAMMY HANNON MD FACP FAC CCDS Aug 21, 2019 14:49
--- NOTE | 2019-08-21 15:02 | Cardiology Discharge Summary ---
Diagnosis/Chief Complaint Date of Admission Aug 20, 2019 at 11:33 Date of Discharge Aug 21, 2019 at 12:45 Final/Discharge Diagnosis CAD, H/o [place] at age 25 - cardiac cath of August 19, 2019: 80% mid vessel stenosis of the ramus intermedius to be successful stenting was carried out with Izabella 2.25 x 8 mm stent. There is a patent stent in the mid right coronary artery (known to be a Gianturco-Roubin stent) and a patent stent in the proximal and mid portions of the distal posterolateral branch of the right coronary (known to be Mini Vision 2.0 x 15 mm). The rest of the coronary vessels have mild to moderate disease. Normal global left ventricular systolic function with ejection fraction approximately 60%. Elevated left ventricular end-diastolic pressure. Vague chest discomfort, non-cardiac, etiology undetermined, resolved Mild ARDEN and hypertension on sleep studies of October 2018. Currently is noncompliant with CPAP DM 2 HTN HLP - followed by his PCP Asthma Chronic depression/anxiety Family h/o CAD (father had his first WA in his 50's) Chief Complaint/HPI Chief Complaint/HPI For condition at discharge, please see our note of today's date (08/21/19) Discharge Summary Discussion & Recommendations Home Medications Reviewed patient Home Medication Reconciliation performed by pharmacy medication reconciliations crown and bridge technician and/or nursing. Patients Allergies have been reviewed. Discharge Home Medications: Reviewed and agree with Discharge Medication list on patient's Discharge Instruction sheet TAMMY HANNON MD FACP FAC CCDS Aug 21, 2019 15:02
--- OUTSIDE RECORDS SUMMARY | 2019-08-25 02:25 | XMS REPORT | Continuity of Care Document ---
Author Organization Unknown Address Unknown Phone Unavailable Allergies Active Description Code Type Severity Reaction Onset Reported/Identified Relationship to Patient Clinical Status Yes No Known Drug Allergies [id number] Drug Allergy Unknown N/A 10/02/2017 Medications There is no data. Problems Date Dx Coded Attending Type Code Diagnosis Diagnosed By 10/03/2017 RIDDHI BETHEA FACC, TAMMY FACP CCDS Ot E11.9 TYPE 2 DIABETES MELLITUS WITHOUT COMPLIC 10/03/2017 RIDDHI BETHEA FACC, ALI FACP CCDS Ot E78.2 MIXED HYPERLIPIDEMIA 10/03/2017 RIDDHI BETHEA FACC, TAMMY FACP CCDS Ot F32.9 MAJOR DEPRESSIVE DISORDER, SINGLE EPISOD 10/03/2017 RIDDHI BETHEA FACC, ALI FACP CCDS Ot F41.9 ANXIETY DISORDER, UNSPECIFIED 10/03/2017 RIDDHI BETHEA FACC, ALI FACP CCDS Ot G47.11 IDIOPATHIC HYPERSOMNIA WITH LONG SLEEP T 10/03/2017 RIDDHI BETHEA FACC, TAMMY FACP CCDS Ot I10 ESSENTIAL (PRIMARY) HYPERTENSION 10/03/2017 RIDDHI BETHEA FACC, ALI FACP CCDS Ot I25.10 ATHSCL HEART DISEASE OF [place] CORONARY 10/03/2017 RIDDHI BETHEA FACC, ALI FACP CCDS Ot I25.2 OLD MYOCARDIAL INFARCTION 10/03/2017 RIDDHI BETHEA FACC, TAMMY FACP CCDS Ot J45.909 UNSPECIFIED ASTHMA, UNCOMPLICATED 10/03/2017 RIDDHI BETHEA FACC, TAMMY FACP CCDS Ot R00.0 TACHYCARDIA, UNSPECIFIED 10/03/2017 RIDDHI BETHEA FACC, ALI FACP CCDS Ot Z79.02 HALF-WAY (CURRENT) USE OF ANTITHROMBOTI 10/03/2017 TAMMY HANNON MD, FACC FACP CCDS Ot Z79.82 AUTOMOTIVE PROFESSIONAL (CURRENT) USE OF ASPIRIN 10/03/2017 RIDDHI BETHEA FACC, ALI FACP CCDS Ot Z79.899 OTHER HALF-WAY (CURRENT) DRUG THERAPY 10/03/2017 RIDDHI MD FACC, ALI FACP CCDS Ot Z82.49 FAMILY HX OF ISCHEM HEART DIS AND OTH DI 10/03/2017 RIDDHI BETHEA FACC, ALI FACP CCDS Ot Z95.5 PRESENCE OF CORONARY ANGIOPLASTY IMPLANT 10/03/2017 RIDDHI BETHEA FACC, ALI FACP CCDS Ot E11.9 TYPE 2 DIABETES MELLITUS WITHOUT COMPLIC 10/03/2017 RIDDHI BETHEA FACC, ALI FACP CCDS Ot E78.2 MIXED HYPERLIPIDEMIA 10/03/2017 RIDDHI BETHEA FACC, ALI FACP CCDS Ot F32.9 MAJOR DEPRESSIVE DISORDER, SINGLE EPISOD 10/03/2017 RIDDHI WILSONC, ALI FACP CCDS Ot F41.9 ANXIETY DISORDER, UNSPECIFIED 10/03/2017 RIDDHI BETHEA FACC, ALI FACP CCDS Ot G47.11 IDIOPATHIC HYPERSOMNIA WITH LONG SLEEP T 10/03/2017 RIDDHI BETHEA FACC, ALI FACP CCDS Ot I10 ESSENTIAL (PRIMARY) HYPERTENSION 10/03/2017 RIDDHI BETHEA FACC, ALI FACP CCDS Ot I25.10 ATHSCL HEART DISEASE OF [place] CORONARY 10/03/2017 RIDDHI BETHEA FACC, ALI FACP CCDS Ot I25.2 OLD MYOCARDIAL INFARCTION 10/03/2017 RIDDHI BETHEA FACC, ALI FACP CCDS Ot J45.909 UNSPECIFIED ASTHMA, UNCOMPLICATED 10/03/2017 RIDDHI BETHEA FACC, ALI FACP CCDS Ot R00.0 TACHYCARDIA, UNSPECIFIED 10/03/2017 RIDDHI BETHEA FACC, ALI FACP CCDS Ot Z79.02 AUTOMOTIVE PROFESSIONAL (CURRENT) USE OF ANTITHROMBOTI 10/03/2017 RIDDHI BETHEA FACC, ALI FACP CCDS Ot Z79.82 AUTOMOTIVE PROFESSIONAL (CURRENT) USE OF ASPIRIN 10/03/2017 RIDDHI BETHEA FACC, ALI FACP CCDS Ot Z79.899 OTHER HALF-WAY (CURRENT) DRUG THERAPY 10/03/2017 RIDDHI BETHEA FACC, ALI FACP CCDS Ot Z82.49 FAMILY HX OF ISCHEM HEART DIS AND OTH DI 10/03/2017 RIDDHI BETHEA FACC, ALI FACP CCDS Ot Z95.5 PRESENCE OF CORONARY ANGIOPLASTY IMPLANT 2018 RIDDHI BETHEA FACC, ALI FACP CCDS Ot E11.9 TYPE 2 DIABETES MELLITUS WITHOUT COMPLIC 2018 RIDDHI BETHEA FACC, ALI FACP CCDS Ot E78.5 HYPERLIPIDEMIA, UNSPECIFIED 2018 RIDDHI WILSONC, ALI FACP CCDS Ot F32.9 MAJOR DEPRESSIVE DISORDER, SINGLE EPISOD 2018 RIDDHI WILSONC, ALI FACP CCDS Ot F41.9 ANXIETY DISORDER, UNSPECIFIED 2018 RIDDHI BETHEA FACC, ALI FACP CCDS Ot I10 ESSENTIAL (PRIMARY) HYPERTENSION 2018 RIDDHI BETHEA FACC, ALI FACP CCDS Ot I25.10 ATHSCL HEART DISEASE OF [place] CORONARY 2018 RDIDHI BETHEA FACC, ALI FACP CCDS Ot I25.2 OLD MYOCARDIAL INFARCTION 2018 RIDDHI BETHEA FACC, ALI FACP CCDS Ot J45.909 UNSPECIFIED ASTHMA, UNCOMPLICATED 2018 RIDDHI BETHEA FACC, ALI FACP CCDS Ot T82.855A STENOSIS OF CORONARY ARTERY STENT, INITI 2018 RIDDHI BETHEA FACC, ALI FACP CCDS Ot Z79.02 HALF-WAY (CURRENT) USE OF ANTITHROMBOTI 2018 RIDDHI BETHEA FACC, TAMMY FACP CCDS Ot Z79.4 AUTOMOTIVE PROFESSIONAL (CURRENT) USE OF INSULIN 2018 RIDDHI BETHEA FACC, ALI FACP CCDS Ot Z82.49 FAMILY HX OF ISCHEM HEART DIS AND OTH DI 2018 RIDDHI BETHEA FACC, ALI FACP CCDS Ot Z95.5 PRESENCE OF CORONARY ANGIOPLASTY IMPLANT 02/14/2018 RIDDHI BETHEA FACC, ALI FACP CCDS Ot E11.9 TYPE 2 DIABETES MELLITUS WITHOUT COMPLIC 02/14/2018 RIDDHI BETHEA FACC, ALI FACP CCDS Ot E78.5 HYPERLIPIDEMIA, UNSPECIFIED 02/14/2018 RIDDHI BETHEA FACC, ALI FACP CCDS Ot F32.9 MAJOR DEPRESSIVE DISORDER, SINGLE EPISOD 02/14/2018 RIDDHI BETHEA FACC, ALI FACP CCDS Ot F41.9 ANXIETY DISORDER, UNSPECIFIED 02/14/2018 RIDDHI BETEHA FACC, ALI FACP CCDS Ot I10 ESSENTIAL (PRIMARY) HYPERTENSION 02/14/2018 RIDDHI BETHEA FACC, ALI FACP CCDS Ot I25.10 ATHSCL HEART DISEASE OF [place] CORONARY 02/14/2018 RIDDHI WILSONC, ALI FACP CCDS Ot I25.2 OLD MYOCARDIAL INFARCTION 02/14/2018 RIDDHI BETHEA FACC, TAMMY FACP CCDS Ot J45.909 UNSPECIFIED ASTHMA, UNCOMPLICATED 02/14/2018 RIDDHI BETHEA FACC, TAMMY FACP CCDS Ot T82.855A STENOSIS OF CORONARY ARTERY STENT, INITI 02/14/2018 RIDDHI BETHEA FACC, ALI FACP CCDS Ot Z79.02 AUTOMOTIVE PROFESSIONAL (CURRENT) USE OF ANTITHROMBOTI 02/14/2018 RIDDHI BETHEA FACC, TAMMY FACP CCDS Ot Z79.4 AUTOMOTIVE PROFESSIONAL (CURRENT) USE OF INSULIN 02/14/2018 RIDDHI BETHEA FACC, TAMMY FACP CCDS Ot Z82.49 FAMILY HX OF [place]HE[place] HEART DIS AND OTH DI 02/14/2018 RIDDHI BETHEA FACC, TAMMY FACP CCDS Ot Z95.5 PRESENCE OF CORONARY ANGIOPLASTY IMPLANT 10/29/2018 EDMOND BETHEA, RADHA P Ot G47.10 HYPERSOMNIA, UNSPECIFIED 10/29/2018 EDMOND BETHEA, RADHA P Ot G47.33 OBSTRUCTIVE SLEEP APNEA (ADULT) (PEDIATR 10/29/2018 EDMOND BETHEA, RADHA P Ot I10 ESSENTIAL (PRIMARY) HYPERTENSION 10/29/2018 EDMOND BETHEA, RADHA P Ot R06.83 SNORING 11/05/2018 EDMOND BETHEA, RADHA P Ot G47.10 HYPERSOMNIA, UNSPECIFIED 11/05/2018 EDMOND BETHEA, RADHA P Ot G47.33 OBSTRUCTIVE SLEEP APNEA (ADULT) (PEDIATR 11/05/2018 EDMOND BETHEA, RADHA P Ot I10 ESSENTIAL (PRIMARY) HYPERTENSION 11/05/2018 EDMOND BETHEA, RADHA P Ot R06.83 SNORING 08/21/2019 RIDDHI BETHEA FACC, TAMMY FACP CCDS Ot E11.9 TYPE 2 DIABETES MELLITUS WITHOUT COMPLIC 08/21/2019 RIDDHI BETHEA FACC, ALI FACP CCDS Ot E78.49 OTHER HYPERLIPIDEMIA 08/21/2019 RIDDHI BETHEA FACC, ALI FACP CCDS Ot F32.9 MAJOR DEPRESSIVE DISORDER, SINGLE EPISOD 08/21/2019 RIDDHI BETHEA FACC, ALI FACP CCDS Ot G47.33 OBSTRUCTIVE SLEEP APNEA (ADULT) (PEDIATR 08/21/2019 RIDDHI BETHEA FACC, ALI FACP CCDS Ot I10 ESSENTIAL (PRIMARY) HYPERTENSION 08/21/2019 RIDDHI BETHEA FACC, ALI FACP CCDS Ot I21.9 ACUTE MYOCARDIAL INFARCTION, UNSPECIFIED 08/21/2019 RIDDHI BETHEA FACC, ALI FACP CCDS Ot I25.118 ATHSCL HEART DISEASE OF [place] COR ART W 08/21/2019 RIDDHI BETHEA FACC, TAMMY FACP CCDS Ot J45.909 UNSPECIFIED ASTHMA, UNCOMPLICATED 08/21/2019 RIDDHI BETHEA FACC, ALI FACP CCDS Ot Z79.02 HALF-WAY (CURRENT) USE OF ANTITHROMBOTI 08/21/2019 RIDDHI BETHEA FACC, ALI FACP CCDS Ot Z79.82 HALF-WAY (CURRENT) USE OF ASPIRIN 08/21/2019 RIDDHI BETHEA FACC, TAMMY FACP CCDS Ot Z79.899 OTHER AUTOMOTIVE PROFESSIONAL (CURRENT) DRUG THERAPY 08/21/2019 RIDDHI BETHEA FACC, ALI FACP CCDS Ot Z91.14 PATIENT'S OTHER NONCOMPLIANCE WITH MEDIC 08/21/2019 RIDDHI BETHEA FACC, TAMMY FACP CCDS Ot Z99.89 DEPENDENCE ON OTHER ENABLING MACHINES AN Procedures There is no data. Results Test Result Range Automated blood complete blood count (he mogram) panel - 10/02/17 07:15 Blood leukocytes automated count (number/volume) 8.6 10*3/uL 4.3-11.0 Blood erythrocytes automated count (number/volume) 5.08 10*6/uL 4.35-5.85 Venous blood hemoglobin measurement (mass/volume) 15.1 g/dL 13.3-17.7 Blood hematocrit (volume fraction) 43 % 40-54 Automated erythrocyte mean corpuscular volume 84 [ foz_us] 80-99 Automated erythrocyte mean corpuscular h emoglobin (mass per erythrocyte) 30 pg 25-34 Automated erythrocyte mean corpuscular h emoglobin concentration measurement (mass/volume) 35 g/dL 32-36 Automated erythrocyte distribution width ratio 12. 9 % 10.0- 14.5 Automated blood platelet count (count/volume) 280 10*3/uL 130-400 Automated blood platelet mean volume measurement 9.7 [foz_us] 7.4-10.4 PT panel in platelet poor plasma by coag ulation assay - 10/02/17 07:15 Prothrombin time (PT) in platelet poor plasma by coagu lation assay 12.3 s 12.2-14.7 INR in platelet poor plasma or blood by coagulation as say 0.9 0.8-1.4 Activated partial thromboplastin time (a PTT) in platelet poor plasma bycoagulation assay - 10/02/17 07:15 Activated partial thromboplastin time (a PTT) in platelet poor plasma bycoagulation assay 28 s 24-35 Comprehensive metabolic panel - 10/02/17 07:15 Serum or plasma sodium measurement (moles/volume) 139 mmol/L 135-145 Serum or plasma potassium measurement (moles/volume) 3.5 mmol/L 3.6-5.0 Serum or plasma chloride measurement (moles/volume) 102 mmol/L 98-107 Carbon dioxide 26 mmol/L 21-32 Serum or plasma anion gap determination (moles/volume) 11 mmol/L 5-14 Serum or plasma urea nitrogen measurement (mass/volume ) 13 mg/dL 7-18 Serum or plasma creatinine measurement (mass/volume) 0.95 mg/dL 0.60-1.30 Serum or plasma urea nitrogen/creatinine mass ratio 14 NRG Serum or plasma creatinine measurement w ith calculation of estimated glomerular filtration rate > NRG Serum or plasma glucose measurement (mass/volume) 179 mg/dL 70-105 Serum or plasma calcium measurement (mass/volume) 9.8 mg/dL 8.5-10.1 Serum or plasma total bilirubin measurement (mass/volu me) 0.5 mg/dL 0.1-1.0 Serum or plasma alkaline phosphatase denice surement (enzymatic activity/volume) 61 U/L 40-136 Serum or plasma aspartate aminotransfera se measurement (enzymatic activity/volume) 21 U/L 5-34 Serum or plasma alanine aminotransferase measurement (enzymatic activity/volume) 35 U/L 0-55 Serum or plasma protein measurement (mass/volume) 7.7 g/dL 6.4-8.2 Serum or plasma albumin measurement (mass/volume) 4.7 g/dL 3.2-4.5 Lipid 1996 panel - 10/02/17 07:15 Serum or plasma triglyceride measurement (mass/volume) 130 mg/dL <150 Serum or plasma cholesterol measurement (mass/volume) 123 mg/dL < 200 Serum or plasma cholesterol in HDL measurement (mass/v olume) 41 mg/dL 40-60 Cholesterol in LDL [mass/volume] in serum or plasma by direct assay 67 mg/dL 1-129 Serum or plasma cholesterol in VLDL measurement (mass/ volume) 26 mg/dL 5-40 Methicillin resistant Staphylococcus aur eus (MRSA) screening culture - 04/17/18 07:15 Methicillin resistant Staphylococcus aureus (MRSA) scr eening culture NEG NRG Capillary blood glucose measurement by g lucometer (mass/volume) - 10/02/17 13:38 Capillary blood glucose measurement by glucometer (mas s/volume) 264 mg/dL 70-110 Capillary blood glucose measurement by g lucometer (mass/volume) - 10/02/17 16:43 Capillary blood glucose measurement by glucometer (mas s/volume) 100 mg/dL 70-110 Capillary blood glucose measurement by g lucometer (mass/volume) - 10/02/17 21:23 Capillary blood glucose measurement by glucometer (mas s/volume) 106 mg/dL 70-110 Automated blood complete blood count (he mogram) panel - 10/03/17 04:05 Blood leukocytes automated count (number/volume) 6.7 10*3/uL 4.3-11.0 Blood erythrocytes automated count (number/volume) 4.58 10*6/uL 4.35-5.85 Venous blood hemoglobin measurement (mass/volume) 13.5 g/dL 13.3-17.7 Blood hematocrit (volume fraction) 39 % 40-54 Automated erythrocyte mean corpuscular volume 86 [ foz_us] 80-99 Automated erythrocyte mean corpuscular h emoglobin (mass per erythrocyte) 30 pg 25-34 Automated erythrocyte mean corpuscular h emoglobin concentration measurement (mass/volume) 34 g/dL 32-36 Automated erythrocyte distribution width ratio 13. 2 % 10.0- 14.5 Automated blood platelet count (count/volume) 234 10*3/uL 130-400 Automated blood platelet mean volume measurement 9.5 [foz_us] 7.4-10.4 Whole blood basic metabolic panel - 09/16 02/02 04:05 Serum or plasma sodium measurement (moles/volume) 139 mmol/L 135-145 Serum or plasma potassium measurement (moles/volume) 3.4 mmol/L 3.6-5.0 Serum or plasma chloride measurement (moles/volume) 105 mmol/L 98-107 Carbon dioxide 24 mmol/L 21-32 Serum or plasma anion gap determination (moles/volume) 10 mmol/L 5-14 Serum or plasma urea nitrogen measurement (mass/volume ) 10 mg/dL 7-18 Serum or plasma creatinine measurement (mass/volume) 0.76 mg/dL 0.60-1.30 Serum or plasma urea nitrogen/creatinine mass ratio 13 NRG Serum or plasma creatinine measurement w ith calculation of estimated glomerular filtration rate > NRG Serum or plasma glucose measurement (mass/volume) 208 mg/dL 70-105 Serum or plasma calcium measurement (mass/volume) 8.9 mg/dL 8.5-10.1 Automated blood complete blood count (he mogram) panel - 02/12/18 12:17 Blood leukocytes automated count (number/volume) 6.1 10*3/uL 4.3-11.0 Blood erythrocytes automated count (number/volume) 4.76 10*6/uL 4.35-5.85 Venous blood hemoglobin measurement (mass/volume) 14.4 g/dL 13.3-17.7 Blood hematocrit (volume fraction) 41 % 40-54 Automated erythrocyte mean corpuscular volume 86 [ foz_us] 80-99 Automated erythrocyte mean corpuscular h emoglobin (mass per erythrocyte) 30 pg 25-34 Automated erythrocyte mean corpuscular h emoglobin concentration measurement (mass/volume) 35 g/dL 32-36 Automated erythrocyte distribution width ratio 12. 9 % 10.0- 14.5 Automated blood platelet count (count/volume) 256 10*3/uL 130-400 Automated blood platelet mean volume measurement 9.9 [foz_us] 7.4-10.4 PT panel in platelet poor plasma by coag ulation assay - 02/12/18 12:17 Prothrombin time (PT) in platelet poor plasma by coagu lation assay 12.8 s 12.2-14.7 INR in platelet poor plasma or blood by coagulation as say 1.0 0.8-1.4 Activated partial thromboplastin time (a PTT) in platelet poor plasma bycoagulation assay - 02/12/18 12:17 Activated partial thromboplastin time (a PTT) in platelet poor plasma bycoagulation assay 27 s 24-35 Comprehensive metabolic panel - 02/12/18 12:17 Serum or plasma sodium measurement (moles/volume) 138 mmol/L 135-145 Serum or plasma potassium measurement (moles/volume) 4.2 mmol/L 3.6-5.0 Serum or plasma chloride measurement (moles/volume) 102 mmol/L 98-107 Carbon dioxide 25 mmol/L 21-32 Serum or plasma anion gap determination (moles/volume) 11 mmol/L 5-14 Serum or plasma urea nitrogen measurement (mass/volume ) 12 mg/dL 7-18 Serum or plasma creatinine measurement (mass/volume) 1.11 mg/dL 0.60-1.30 Serum or plasma urea nitrogen/creatinine mass ratio 11 NRG Serum or plasma creatinine measurement w ith calculation of estimated glomerular filtration rate > NRG Serum or plasma glucose measurement (mass/volume) 202 mg/dL 70-105 Serum or plasma calcium measurement (mass/volume) 9.7 mg/dL 8.5-10.1 Serum or plasma total bilirubin measurement (mass/volu me) 0.5 mg/dL 0.1-1.0 Serum or plasma alkaline phosphatase denice surement (enzymatic activity/volume) 55 U/L 40-136 Serum or plasma aspartate aminotransfera se measurement (enzymatic activity/volume) 22 U/L 5-34 Serum or plasma alanine aminotransferase measurement (enzymatic activity/volume) 32 U/L 0-55 Serum or plasma protein measurement (mass/volume) 7.4 g/dL 6.4-8.2 Serum or plasma albumin measurement (mass/volume) 4.3 g/dL 3.2-4.5 CALCIUM CORRECTED 9.5 mg/dL 8.5-10.1 Lipid 1996 panel - 02/12/18 12:17 Serum or plasma triglyceride measurement (mass/volume) 99 mg/dL <150 Serum or plasma cholesterol measurement (mass/volume) 127 mg/dL < 200 Serum or plasma cholesterol in HDL measurement (mass/v olume) 43 mg/dL 40-60 Cholesterol in LDL [mass/volume] in serum or plasma by direct assay 71 mg/dL 1-129 Serum or plasma cholesterol in VLDL measurement (mass/ volume) 20 mg/dL 5-40 Automated blood complete blood count ( mogram) panel - 08/19/19 10:38 Blood leukocytes automated count (number/volume) 7.8 10*3/uL 4.3-11.0 Blood erythrocytes automated count (number/volume) 4.66 10*6/uL 4.35-5.85 Venous blood hemoglobin measurement (mass/volume) 13.9 g/dL 13.3-17.7 Blood hematocrit (volume fraction) 40 % 40-54 Automated erythrocyte mean corpuscular volume 87 [ foz_us] 80-99 Automated erythrocyte mean corpuscular h emoglobin (mass per erythrocyte) 30 pg 25-34 Automated erythrocyte mean corpuscular h emoglobin concentration measurement (mass/volume) 35 g/dL 32-36 Automated erythrocyte distribution width ratio 13. 1 % 10.0- 14.5 Automated blood platelet count (count/volume) 266 10*3/uL 130-400 Automated blood platelet mean volume measurement 9.5 [foz_us] 7.4-10.4 PT panel in platelet poor plasma by coag ulation assay - 08/19/19 10:38 Prothrombin time (PT) in platelet poor plasma by coagu lation assay 12.7 s 12.2-14.7 INR in platelet poor plasma or blood by coagulation as say 0.9 0.8-1.4 Activated partial thromboplastin time (a PTT) in platelet poor plasma bycoagulation assay - 08/19/19 10:38 Activated partial thromboplastin time (a PTT) in platelet poor plasma bycoagulation assay 30 s 24-35 Comprehensive metabolic panel - 08/19/19 10:38 Serum or plasma sodium measurement (moles/volume) 138 mmol/L 135-145 Serum or plasma potassium measurement (moles/volume) 4.0 mmol/L 3.6-5.0 Serum or plasma chloride measurement (moles/volume) 104 mmol/L 98-107 Carbon dioxide 25 mmol/L 21-32 Serum or plasma anion gap determination (moles/volume) 9 mmol/L 5-14 Serum or plasma urea nitrogen measurement (mass/volume ) 16 mg/dL 7-18 Serum or plasma creatinine measurement (mass/volume) 0.98 mg/dL 0.60-1.30 Serum or plasma urea nitrogen/creatinine mass ratio 16 NRG Serum or plasma creatinine measurement w ith calculation of estimated glomerular filtration rate > NRG Serum or plasma glucose measurement (mass/volume) 202 mg/dL 70-105 Serum or plasma calcium measurement (mass/volume) 9.7 mg/dL 8.5-10.1 Serum or plasma total bilirubin measurement (mass/volu me) 0.4 mg/dL 0.1-1.0 Serum or plasma alkaline phosphatase denice surement (enzymatic activity/volume) 63 U/L 40-136 Serum or plasma aspartate aminotransfera se measurement (enzymatic activity/volume) 18 U/L 5-34 Serum or plasma alanine aminotransferase measurement (enzymatic activity/volume) 33 U/L 0-55 Serum or plasma protein measurement (mass/volume) 7.1 g/dL 6.4-8.2 Serum or plasma albumin measurement (mass/volume) 4.3 g/dL 3.2-4.5 CALCIUM CORRECTED 9.5 mg/dL 8.5-10.1 Lipid 1996 panel - 08/19/19 10:38 Serum or plasma triglyceride measurement (mass/volume) 98 mg/dL <150 Serum or plasma cholesterol measurement (mass/volume) 106 mg/dL < 200 Serum or plasma cholesterol in HDL measurement (mass/v olume) 36 mg/dL 40-60 Cholesterol in LDL [mass/volume] in serum or plasma by direct assay 60 mg/dL 1-129 Serum or plasma cholesterol in VLDL measurement (mass/ volume) 20 mg/dL 5-40 Methicillin resistant Staphylococcus aur eus (MRSA) screening culture - 08/19/19 10:38 Methicillin resistant Staphylococcus aureus (MRSA) scr eening culture NEG NRG Capillary blood glucose measurement by g lucometer (mass/volume) - 08/19/19 17:10 Capillary blood glucose measurement by glucometer (mas s/volume) 129 mg/dL 70-110 Automated blood complete blood count (he mogram) panel - 08/20/19 03:33 Blood leukocytes automated count (number/volume) 7.8 10*3/uL 4.3-11.0 Blood erythrocytes automated count (number/volume) 4.56 10*6/uL 4.35-5.85 Venous blood hemoglobin measurement (mass/volume) 13.1 g/dL 13.3-17.7 Blood hematocrit (volume fraction) 40 % 40-54 Automated erythrocyte mean corpuscular volume 87 [ foz_us] 80-99 Automated erythrocyte mean corpuscular h emoglobin (mass per erythrocyte) 29 pg 25-34 Automated erythrocyte mean corpuscular h emoglobin concentration measurement (mass/volume) 33 g/dL 32-36 Automated erythrocyte distribution width ratio 13. 2 % 10.0- 14.5 Automated blood platelet count (count/volume) 242 10*3/uL 130-400 Automated blood platelet mean volume measurement 9.7 [foz_us] 7.4-10.4 Whole blood basic metabolic panel - 10/05 03:33 Serum or plasma sodium measurement (moles/volume) 138 mmol/L 135-145 Serum or plasma potassium measurement (moles/volume) 3.7 mmol/L 3.6-5.0 Serum or plasma chloride measurement (moles/volume) 104 mmol/L 98-107 Carbon dioxide 25 mmol/L 21-32 Serum or plasma anion gap determination (moles/volume) 9 mmol/L 5-14 Serum or plasma urea nitrogen measurement (mass/volume ) 13 mg/dL 7-18 Serum or plasma creatinine measurement (mass/volume) 0.84 mg/dL 0.60-1.30 Serum or plasma urea nitrogen/creatinine mass ratio 15 NRG Serum or plasma creatinine measurement w ith calculation of estimated glomerular filtration rate > NRG Serum or plasma glucose measurement (mass/volume) 191 mg/dL 70-105 Serum or plasma calcium measurement (mass/volume) 9.1 mg/dL 8.5-10.1 Capillary blood glucose measurement by g lucometer (mass/volume) - 08/20/19 11:47 Capillary blood glucose measurement by glucometer (mas s/volume) 196 mg/dL 70-110 Capillary blood glucose measurement by g lucometer (mass/volume) - 08/20/19 16:01 Capillary blood glucose measurement by glucometer (mas s/volume) 261 mg/dL 70-110 Capillary blood glucose measurement by g lucometer (mass/volume) - 08/20/19 20:42 Capillary blood glucose measurement by glucometer (mas s/volume) 168 mg/dL 70-110 Complete blood count (CBC) with automate d white blood cell (WBC) differential - 08/21/19 03:15 Blood leukocytes automated count (number/volume) 6.3 10*3/uL 4.3-11.0 Blood erythrocytes automated count (number/volume) 4.67 10*6/uL 4.35-5.85 Venous blood hemoglobin measurement (mass/volume) 13.7 g/dL 13.3-17.7 Blood hematocrit (volume fraction) 41 % 40-54 Automated erythrocyte mean corpuscular volume 87 [ foz_us] 80-99 Automated erythrocyte mean corpuscular h emoglobin (mass per erythrocyte) 29 pg 25-34 Automated erythrocyte mean corpuscular h emoglobin concentration measurement (mass/volume) 34 g/dL 32-36 Automated erythrocyte distribution width ratio 13. 0 % 10.0- 14.5 Automated blood platelet count (count/volume) 237 10*3/uL 130-400 Automated blood platelet mean volume measurement 9.6 [foz_us] 7.4-10.4 Automated blood neutrophils/100 leukocytes 51 % 42-75 Automated blood lymphocytes/100 leukocytes 39 % 12-44 Blood monocytes/100 leukocytes 8 % 0-12 Automated blood eosinophils/100 leukocytes 2 % 0-10 Automated blood basophils/100 leukocytes 0 % 0-10 Blood neutrophils automated count (number/volume) 3.2 10*3 1.8-7.8 Blood lymphocytes automated count (number/volume) 2.5 10*3 1.0-4.0 Blood monocytes automated count (number/volume) 0. 5 10*3 0.0-1.0 Automated eosinophil count 0.1 10*3/uL 0 .0-0.3 Automated blood basophil count (count/volume) 0.0 10*3/uL 0.0-0.1 Whole blood basic metabolic panel - 11/04 03:15 Serum or plasma sodium measurement (moles/volume) 140 mmol/L 135-145 Serum or plasma potassium measurement (moles/volume) 3.8 mmol/L 3.6-5.0 Serum or plasma chloride measurement (moles/volume) 104 mmol/L 98-107 Carbon dioxide 24 mmol/L 21-32 Serum or plasma anion gap determination (moles/volume) 12 mmol/L 5-14 Serum or plasma urea nitrogen measurement (mass/volume ) 13 mg/dL 7-18 Serum or plasma creatinine measurement (mass/volume) 1.00 mg/dL 0.60-1.30 Serum or plasma urea nitrogen/creatinine mass ratio 13 NRG Serum or plasma creatinine measurement w ith calculation of estimated glomerular filtration rate > NRG Serum or plasma glucose measurement (mass/volume) 248 mg/dL 70-105 Serum or plasma calcium measurement (mass/volume) 9.5 mg/dL 8.5-10.1 Magnesium - 08/21/19 03:15 Magnesium 2.0 mg/dL 1.6-2.4 Encounters ACCT No. Visit Date/Time Discharge Status Pt. Type Provider Facility Loc./Unit Complaint [id number] 08/20/2019 11:33:00 020 12:45:00 DIS Inpatient RIDDHI BETHEA FACC, TAMMY DAVIDSON CCD S [facility] ICU CP POST CATH [id number] 10/28/2018 20:51:00 019 07:40:00 DIS Outpatient RADHA PRUITT MD [facility] SLEEP ARDEN [id number] 2018 11:48:00 018 17:00:00 DIS Outpatient RIDDHI BETHEA FACC, TAMMY DAVIDSON CC DS [facility] CATH CAD,HTN [id number] 10/02/2017 06:51:00 018 10:58:00 DIS Outpatient RIDDHI BETHEA FACC, TAMMY DAVIDSON CC DS [facility] CATH ANGINA
--- OUTSIDE RECORDS SUMMARY | 2019-08-25 06:28 | XMS REPORT | Continuity of Care Document ---
Author Organization Unknown Address Unknown Phone Unavailable Allergies Active Description Code Type Severity Reaction Onset Reported/Identified Relationship to Patient Clinical Status Yes No Known Drug Allergies [id number] Drug Allergy Unknown N/A 10/02/2017 Medications There [...] CCDS Ot I25.10 ATHSCL HEART DISEASE OF [place] CORONARY 10/03/2017 RIDDHI BETHEA FACC, ALI FACP CCDS Ot I25.2 OLD MYOCARDIAL INFARCTION 10/03/2017 RIDDHI BETHEA FACC, TAMMY FACP CCDS Ot J45.909 UNSPECIFIED ASTHMA, UNCOMPLICATED 10/03/2017 RIDDHI BETHEA FACC, TAMMY FACP CCDS Ot R00.0 TACHYCARDIA, UNSPECIFIED 10/03/2017 RIDDHI BETHEA FACC, ALI FACP CCDS Ot Z79.02 PRISON (CURRENT) USE OF ANTITHROMBOTI 10/03/2017 TAMMY HANNON MD, FACC FACP CCDS Ot Z79.82 STUDIO OPERATOR (CURRENT) USE OF ASPIRIN 10/03/2017 RIDDHI BETHEA FACC, ALI FACP CCDS Ot Z79.899 OTHER PRISON (CURRENT) DRUG THERAPY 10/03/2017 RIDDHI MD FACC, [...] CCDS Ot I25.10 ATHSCL HEART DISEASE OF [place] CORONARY 10/03/2017 RIDDHI BETHEA FACC, ALI FACP CCDS Ot I25.2 OLD MYOCARDIAL INFARCTION 10/03/2017 RIDDHI BETHEA FACC, ALI FACP CCDS Ot J45.909 UNSPECIFIED ASTHMA, UNCOMPLICATED 10/03/2017 RIDDHI BETHEA FACC, ALI FACP CCDS Ot R00.0 TACHYCARDIA, UNSPECIFIED 10/03/2017 RIDDHI BETHEA FACC, ALI FACP CCDS Ot Z79.02 STUDIO OPERATOR (CURRENT) USE OF ANTITHROMBOTI 10/03/2017 RIDDHI BETHEA FACC, ALI FACP CCDS Ot Z79.82 STUDIO OPERATOR (CURRENT) USE OF ASPIRIN 10/03/2017 RIDDHI BETHEA FACC, ALI FACP CCDS Ot Z79.899 OTHER PRISON (CURRENT) DRUG THERAPY 10/03/2017 RIDDHI BETHEA FACC, [...] CCDS Ot I25.10 ATHSCL HEART DISEASE OF [place] CORONARY 2018 RIDDHI BETHEA FACC, ALI FACP CCDS Ot I25.2 OLD MYOCARDIAL INFARCTION 2018 RIDDHI BETHEA FACC, ALI FACP CCDS Ot J45.909 UNSPECIFIED ASTHMA, UNCOMPLICATED 2018 RIDDHI BETHEA FACC, ALI FACP CCDS Ot T82.855A STENOSIS OF CORONARY ARTERY STENT, INITI 2018 RIDDHI BETHEA FACC, ALI FACP CCDS Ot Z79.02 PRISON (CURRENT) USE OF ANTITHROMBOTI 2018 RIDDHI BETHEA FACC, TAMMY FACP CCDS Ot Z79.4 STUDIO OPERATOR (CURRENT) USE OF INSULIN 2018 RIDDHI BETHEA [...] Ot F41.9 ANXIETY DISORDER, UNSPECIFIED 02/14/2018 RIDDHI BETHEA FACC, ALI FACP CCDS Ot I10 ESSENTIAL (PRIMARY) HYPERTENSION 02/14/2018 RIDDHI BETHEA FACC, ALI FACP CCDS Ot I25.10 ATHSCL HEART DISEASE OF [place] CORONARY 02/14/2018 RIDDHI WILSONC, ALI FACP CCDS Ot I25.2 OLD MYOCARDIAL INFARCTION 02/14/2018 RIDDHI BETHEA FACC, TAMMY FACP CCDS Ot J45.909 UNSPECIFIED ASTHMA, UNCOMPLICATED 02/14/2018 RIDDHI BETHEA FACC, TAMMY FACP CCDS Ot T82.855A STENOSIS OF CORONARY ARTERY STENT, INITI 02/14/2018 RIDDHI BETHEA FACC, ALI FACP CCDS Ot Z79.02 STUDIO OPERATOR (CURRENT) USE OF ANTITHROMBOTI 02/14/2018 RIDDHI BETHEA FACC, TAMMY FACP CCDS Ot Z79.4 STUDIO OPERATOR (CURRENT) USE OF INSULIN 02/14/2018 RIDDHI BETHEA [...] CCDS Ot I25.118 ATHSCL HEART DISEASE OF [place] COR ART W 08/21/2019 RIDDHI BETHEA FACC, TAMMY FACP CCDS Ot J45.909 UNSPECIFIED ASTHMA, UNCOMPLICATED 08/21/2019 RIDDHI BETHEA FACC, ALI FACP CCDS Ot Z79.02 PRISON (CURRENT) USE OF ANTITHROMBOTI 08/21/2019 RIDDHI BETHEA FACC, ALI FACP CCDS Ot Z79.82 PRISON (CURRENT) USE OF ASPIRIN 08/21/2019 RIDDHI BETHEA FACC, TAMMY FACP CCDS Ot Z79.899 OTHER STUDIO OPERATOR (CURRENT) DRUG THERAPY 08/21/2019 RIDDHI BETHEA FACC, [...] Status Pt. Type Provider Facility Loc./Unit Complaint [id number] 08/20/2019 11:33:00 020 12:45:00 DIS Inpatient RIDDHI BETHEA FACC, TAMMY DAVIDSON CCD S [facility] ICU CP POST CATH [id number] 10/28/2018 20:51:00 019 07:40:00 DIS Outpatient RADHA PRUITT MD [facility] SLEEP [place] [id number] 2018 11:48:00 018 17:00:00 DIS Outpatient RIDDHI BETHEA FACC, TAMMY DAVIDSON CC DS [facility] CATH CAD,HTN [id number] 10/02/2017 06:51:00 018 10:58:00 DIS Outpatient RIDDHI BETHEA FACC, TAMMY DAVIDSON CC DS [facility] CATH ANGINA
== END 2019-08-21 12:45 | disposition home or self-care (01) ==
LOC: CATH 10:11 → ICU 14:18 → CATH 08-20 11:32 → ICU 08-20 11:33
PROVIDERS: ADMIT Internal Medicine Cardiovascular Disease; ATTEND Internal Medicine Cardiovascular Disease
DX: I25.118 Atherosclerotic heart disease of native coronary artery with other forms of angina pectoris (principal); I10 Essential (primary) hypertension; I21.9 Acute myocardial infarction, unspecified; J45.909 Unspecified asthma, uncomplicated; G47.33 Obstructive sleep apnea (adult) (pediatric); E78.49 Other hyperlipidemia; E11.9 Type 2 diabetes mellitus without complications; F32.9 Major depressive disorder, single episode, unspecified; Z91.14 Patient's other noncompliance with medication regimen; Z99.89 Dependence on other enabling machines and devices; Z79.899 Other long term (current) drug therapy; Z79.82 Long term (current) use of aspirin; Z79.02 Long term (current) use of antithrombotics/antiplatelets
CPT/HCPCS: 36415; 80048; 80053; 80061; 82962; 83735; 85025; 85027; 85610; 85730; 87081; 93005; 93458; 99211

== ENCOUNTER 2020-06-08 07:10 | Day surgery (SDC) | payer OTHER ==
[~2020-06-08] VITALS: Ht 162 cm; Wt 78.0 kg
[2020-06-08] VITALS (9 sets, daily range): BP systolic 134–151; BP diastolic 90–99
[~2020-06-08 07:10] MED LIST changes: +AMLO-250 PO; -AMLO5TAB9 PO; +ASCO100024 PO; -ASCO10006 PO; +ASPI-1238 PO; -ASPI-983 PO; +BUSP30TA2 PO; +FAMO20TA3 PO; +ISOS30TA3 PO; +PANT40TA52 PO; +TETR15DR73 OP
[2020-06-08] MEDS ORDERED: NS IV 1000 ML 1,000 ML ONE (07:14)
[2020-06-08] MEDS ORDERED: HEParin (CATH LAB) 2,000 ML IV ONE (07:14)
[2020-06-08] MEDS ORDERED: LIDOCAINE 1% INJ 20 ML 20 ML VIAL ONE (07:14)
[2020-06-08] MEDS ORDERED: NS IV 1000 ML 1,000 ML IV SCH ×2 (07:15→09:45)
[2020-06-08 07:42] LABS: HEMOGLOBIN 14.4 g/dL (13.3-17.7); MEAN PLATELET VOLUME 9.4 fL (9.0-12.2); WHITE BLOOD COUNT 8.4 10^3/uL (4.3-11.0)
[2020-06-08 07:56] LABS: INR 0.9 (0.8-1.4)
[2020-06-08 07:59] LABS: ALANINE AMINOTRANSFERASE 27 U/L (0-55); ALBUMIN 4.2 GM/DL (3.2-4.5); ALKALINE PHOSPHATASE 54 U/L (40-136); BILIRUBIN,TOTAL 0.4 MG/DL (0.1-1.0); BUN/CREATININE RATIO 25; CALCIUM 9.1 MG/DL (8.5-10.1); CARBON DIOXIDE 22 MMOL/L (21-32); CHLORIDE 104 MMOL/L (98-107); CHOLESTEROL 95 MG/DL (< 200); CREATININE SERUM 0.92 MG/DL (0.60-1.30); GFR ESTIMATED > 60; GLUCOSE 160 MG/DL (70-105); HDL CHOLESTEROL 35 MG/DL (40-60); POTASSIUM 3.7 MMOL/L (3.6-5.0); SODIUM 137 MMOL/L (135-145); TOTAL PROTEIN 7.1 GM/DL (6.4-8.2); TRIGLYCERIDES 73 MG/DL (<150); VLDL CHOLESTEROL 15 MG/DL (5-40)
[2020-06-08] MEDS ORDERED: fentaNYL INJECTION 100 MCG/2 ML AMP ONE (08:14)
[2020-06-08] MEDS ORDERED: MIDAZOLAM 5 MG/5 ML (VERSED) VIAL ONE (08:14)
[2020-06-08] MEDS ORDERED: HEParin 1000 UNIT/ML (10ML VIAL) FOR BOLUS ONE (08:56)
[2020-06-08] MEDS ORDERED: ADENOSINE 90 MG/30 ML (ADENOSCAN) VIAL IV ONE (08:56)
--- NOTE | 2020-06-08 09:37 | Cardiac Procedure Note-CS/ASA ---
Pre-Procedure Note Pre-Op Procedure Note H&P Reviewed The H&P was reviewed, patient examined and no changes noted. Date H&P Reviewed: Jun 08, 2020 Time H&P Reviewed: 08:50 Conscious Sedation Pre-Proced Time 08:50 ASA Score 3 For ASA 3 and 4: Consider anesthesia and medical clearance. Also, for patients with a history of failed moderate sedation consider anesthesia. Airway Lungs Heart ASA score ASA 1: a normal healthy patient ASA 2: a patient with a mild systemic disease (mid diabetes, controlled hypertension, obesity ASA 3: a patient with a severe systemic disease that limits activity (angina, COPD, prior Myocardial infarction) ASA 4: a patient with an incapacitating disease that is a constant threat to life (CHF, renal failure) ASA 5: a moribund patient not expected to survive 24 hrs. (ruptured aneurysm) ASA 6: a declared brain- patient whose organs are being harvested. For emergent operations, add the letter E after the classification Mallampati Classification Grade 2 Sedation Plan Analgesia, Amnesia, Plan communicated to team members, Discussed options with patient/fam, Discussed risks with patient/fam The patient is an appropriate candidate to undergo the planned procedure, sedation, and anesthesia. The patient immediately re-assessed prior to indication. TAMMY HANNON MD FACP FAC CCDS Jun 08, 2020 09:37
[2020-06-08] MEDS ORDERED: NITR0.4T39 SL (09:41)
--- NOTE | 2020-06-08 09:42 | Discharge Inst-Cardiology ---
Discharge Inst-Cardiac Discharge Medications Continued Medications: Albuterol Sulfate (Ventolin Hfa) 1 Puff Puff 2 PUFF IH PRN PRN for SHORTNESS OF BREATH, PUFF 1 PUFF = 90 MCG Alprazolam (Xanax) 0.25 Mg Tablet 0.125 MG PO PRN PRN for ANXIETY, TAB Amlodipine Besylate (Amlodipine Besylate) 5 Mg Tablet 5 MG PO DAILY, #30 TAB 5 Refills Ascorbic Acid (Ascorbic Acid) 500 Mg Tablet 500 MG PO BID, TAB Aspirin (Aspirin EC) 81 Mg Tablet.dr 81 MG PO DAILY, TAB Atorvastatin Calcium (Atorvastatin Calcium) 40 Mg Tablet 40 MG PO HS, TAB Budesonide/Formoterol Fumarate (Symbicort 80-4.5 Mcg Inhaler) 10.2 Gm Hfa.aer.ad 2 PUFF IH BID, INHALER Bupropion HCl (Wellbutrin Sr) 150 Mg Tablet.er 150 MG PO DAILY for Smoking Cessation, TAB Bupropion HCl (Wellbutrin Sr) 150 Mg Tablet.er 300 MG PO HS for Smoking Cessation, TAB Buspirone HCl (Buspirone HCl) 30 Mg Tablet 60 MG PO DAILY, TAB Clopidogrel Bisulfate (Clopidogrel) 75 Mg Tablet 75 MG PO DAILY, TAB Famotidine (Acid Jelly Maker (FAMOTIDINE)) 20 Mg Tablet 20 MG PO BID, #60 TAB 2 Refills Insulin Degludec (Tresiba Flextouch U-100) 100 Unit/1 Ml Insuln.pen 20 UNIT SQ HS, EA Isosorbide Mononitrate (Isosorbide Mononitrate ER) 30 Mg Tab.er.24h 30 MG PO DAILY, TAB Magnesium Oxide (Magnesium) 250 Mg Tablet 250 MG PO HS, TAB Melatonin (Melatonin) 5 Mg Tab.ir.er 5 MG PO HS Metoprolol Succinate (Toprol Xl) 50 Mg Tab.er.24h 50 MG PO DAILY, #30 TAB 5 Refills Multivitamin (Men's Multi-Vitamin) 1 Each Tablet 2 EACH PO DAILY, TAB Nitroglycerin (Nitroglycerin) 0.4 Mg Tab.subl 0.4 MG SL UD PRN for CHEST PAIN, #100 TAB 2 Refills (This prescription has been renewed) TAMMY HANNON MD [facility] CCDS Jun 08, 2020 09:42
--- NOTE | 2020-06-08 09:42 | Discharge Inst-Post CATH ---
Discharge Inst-CATH/EP Post Cardiac Cath/EP D/C Inst Follow Up/Plan F/u with Dr Fofana in 2 weeks ACTIVITY * Go Home directly and rest. * Limit activity of the leg (or wrist if it was used) for 7 days including aerobics, swimming, jogging, bicycling, etc. * Restrict stair-climbing for 7 days if possible, if not, climb up with your no n-cath leg, then bring together on the same step. * Avoid lifting, pushing, pulling or excessive movement of the affected ext remity for 7 days. * Customary sexual activity may be resumed after 2 days-use caution not to use a position that strains or causes pain to the affected extremity. * No driving for 24 hours. * NO SMOKING. * Avoid straining for bowel movements for 7 days. * Gentle walking on level ground is allowed. * Returning to work will depend on the type of procedure and the results. Your doctor will discuss this with you. CALL YOUR DOCTOR FOR ANY OF THE FOLLOWING: *If bleeding from the puncture site occurs- Apply gentle pressure to site with clean cloth and call your doctor or EMS. * If a knot or lump forms under the skin, increases in size, or causes pain. * If bruising appears to be worsening or moving further down your leg instead of disappearing. * Temperature above 101 F. CARE OF YOUR GROIN INCISION; * Bruising or purple discoloration of the skin near the puncture site is common. * You may shower only, no bathtub bathing for 5 days. Be careful to avoid slipping as your leg may feel stiff. * If a closure device was used on your femoral artery, please see the attached guide regarding care of the device and your leg. * Leave dressing on FOR 24 hours. CARE OF YOUR WRIST INCISION; * Bruising or purple discoloration of the skin near the puncture site is common. * You may shower. * DO NOT submerge wrist. * Leave dressing on FOR 24 hours. TAMMY FOFANA MD [facility] CCDS Jun 08, 2020 09:42
[2020-06-08] MEDS ORDERED: PATIENT MAY USE OWN MEDS, ALL PO SCH (09:45)
--- NOTE | 2020-06-08 10:13 | CARDIAC CATHETERIZATION ---
DATE OF SERVICE: 06/08/2020 CARDIAC CATHETERIZATION REPORT INDICATIONS: The patient is a 50-year-old man who has a history of coronary artery disease and who has been experiencing chest discomfort suggestive of new onset of angina. Cardiac catheterization was carried out today after having obtained an informed consent. DESCRIPTION OF PROCEDURE: He was brought to the cardiac catheterization laboratory in a fasting state. Right groin was prepared and draped in the usual sterile fashion. Lidocaine 1% was used for local anesthesia. Modified Seldinger technique was used to advance a 5-Norwegian sheath in the right femoral artery, 5-Norwegian JL3.5 catheter was used for left coronary angiography. A 5-Norwegian JR4 catheter used for right coronary angiography, 5-Norwegian pigtail catheter was used for left heart catheterization and left ventricular angiography. FRACTIONAL FLOW RESERVE MEASUREMENT IN THE RAMUS INTERMEDIUS ARTERY: Following completion of coronary angiography and left ventricular angiography, we carried out fractional flow reserve measurement in the ramus intermedius because it was exhibiting approximately 50% proximal stenosis. We exchanged the sheath over a wire for a 6-Norwegian sheath. We used a 6-Norwegian JL4 guide catheter. We advanced a pressure wire across the lesion. Fractional flow reserve measurement was carried out while infusing 140 mcg per kilogram per minute of adenosine. Fractional flow reserve was 0.9, indicating hemodynamic insignificance. He tolerated the procedure well. The equipment was removed. Coronary angiography was repeated. There was no change in coronary status. Angiography of the right femoral artery was carried out through the sheath. Mynx was used to achieve hemostasis. He tolerated the procedure well. HEMODYNAMICS: Left ventricular end-diastolic pressure following coronary angiography was at the high end of normal. There was no significant pressure gradient on pullback across the aortic valve. LEFT VENTRICULAR ANGIOGRAPHY: Left ventricular angiography was carried out in the right anterior oblique projection. Global left ventricular systolic function is normal. No regional wall motion abnormalities seen. Left ventricular ejection fraction approximately 65%. CORONARY ANGIOGRAPHY: Left main coronary artery is free of significant disease. Left anterior descending artery has mild plaques. A ramus intermedius artery has a patent stent in its mid portion. There was approximately 50% proximal stenosis and fractional flow reserve across this lesion is 0.9, indicating hemodynamic nonsignificance. Right coronary artery is dominant and has a patent stent in its mid portion. CONCLUSIONS: 1. Angiographically mild coronary artery disease. The ramus intermedius has approximately 50% proximal stenosis and fractional flow reserve across it is 0.9, indicating hemodynamic insignificance. There is a patent stent in the mid portion of the ramus intermedius that is known to be Izabella 2.25 x 8 mm. The second diagonal branch left anterior descending artery has approximately 50% ostial stenosis. This is a small caliber vessel. The left anterior descending artery has mild plaques. The left circumflex artery patient is very small and does not exhibit significant disease. Right coronary artery is dominant and has a patent stent in its mid portion that is known to be a Gianturco-Roubin stent. There is also a patent stent in the proximal and mid portions of the distal posterolateral branch of the right coronary that is known to be Mini Vision 2.0 x 15 mm. The distal portion of the posterolateral has approximately 50% stenosis where the vessel is of a small caliber. 2. Normal global left ventricular systolic function with an ejection fraction approximately 65%. 3. Left ventricular end-diastolic pressure at the left upper end of normal. DISCUSSION AND RECOMMENDATIONS: Based on results of the study, it appears appropriate to continue a conservative approach. Continuing risk factor modification is advised. Outpatient followup is advised. We have advised continuation of his current medical regimen. Job ID: [id number] DocumentID: [id number] Dictated Date: 06/08/2020 09:34:52 Supervisor Calibration Date: 06/08/2020 10:13:07 Dictated By: TAMMY HANNON MD, MA, FACP, FACC, MTDD
== END 2020-06-08 12:50 | disposition home or self-care (01) ==
LOC: CATH 07:10 → SDC 09:48 → CATH 12:50
PROVIDERS: ATTEND Internal Medicine Cardiovascular Disease
DX: I25.10 Atherosclerotic heart disease of native coronary artery without angina pectoris (principal); E11.9 Type 2 diabetes mellitus without complications; G47.33 Obstructive sleep apnea (adult) (pediatric); F41.9 Anxiety disorder, unspecified; F32.9 Major depressive disorder, single episode, unspecified; E78.2 Mixed hyperlipidemia; J45.909 Unspecified asthma, uncomplicated; E66.9 Obesity, unspecified; Z68.29 Body mass index [BMI] 29.0-29.9, adult; Z79.51 Long term (current) use of inhaled steroids; Z79.82 Long term (current) use of aspirin; Z79.899 Other long term (current) drug therapy
CPT/HCPCS: 80053; 80061; 85027; 85610; 85730; 87081; 93458; 93571; C1760; C1769; C1887; C1894 ×2; 36415

== ENCOUNTER 2021-07-15 12:34 | Emergency (ER) | payer SELFPAY ==
[~2021-07-15] VITALS: Ht 162 cm; Wt 76.2 kg
[~2021-07-15 12:34] MED LIST changes: -ISOS30TA3 PO; +ISOS30TA82 PO
[2021-07-15] MEDS ORDERED: ASPIRIN 81 MG CHEW (CHILDREN'S ASA) PO ONE (12:45)
--- NOTE | 2021-07-15 12:54 | ED Cardiac General ---
History of Present Illness General Chief Complaint: Cardiac/General Problems Stated Complaint: IRR HEART RATE, ELEV BP Nursing Triage Note: PT REPORTS TACHYCARDIA AND HYPERTENSION THROUGHOUT THE NIGHT. PT REPORTS BP OF 173-109 AND 163/98 AT HOME. PT HAS BEEN TAKING REGULARLY PRESCRIBED MEDS FOR HTN. Source: patient Exam Limitations: no limitations History of Present Illness Date Seen by Provider: Jul 15, 2021 Time Seen by Provider: 12:54 Initial Comments To ER with tachycardia and hypertension. He denies any chest pain. He does have some mild shortness of breath but he has asthma. No fevers or chills. No nausea or vomiting. He did have some fatigue this was unusual for him earlier this week. He slept a lot and now feels better in that regard. At about 11 PM last night when he went to bed he noticed a high heart rate to a maximum of 115 at home and typically in the 95-1 05 range. His blood pressure was also elevated despite his 5 mg of amlodipine daily and 50 mg of Toprol-XL daily. He has known coronary disease and has 3 coronary stents. His cardiac catheterization with Dr. Flynn here last year showed patent coronary stents and mild coronary disease. He denies any chest pain and is very familiar with how that feels. He does have some anxiety. He was seen at [facility] with a normal EKG and referred here for further evaluation of his symptoms. Timing/Duration: 12 hours Severity: moderate Activities at Onset: none Prior CP/Workup: no prior chest pain NTG SL SUPERVISOR REFRACTORY PRODUCTS: No ASA po SUPERVISOR REFRACTORY PRODUCTS: No Associated Systoms: Denies Symptoms Allergies and Home Medications Allergies Coded Allergies: No Known Drug Allergies (Unverified , 10/02/17) Patient Home Medication List Home Medication List Reviewed: Yes Albuterol Sulfate (Ventolin Hfa) 1 Puff Puff, 2 PUFF IH PRN PRN for SHORTNESS OF BREATH, (Reported) Entered as Reported by: PATRICIA MURGUIA on 10/02/17 0738 Alprazolam (Xanax) 0.25 Mg Tablet, 0.125 MG PO PRN PRN for ANXIETY, (Reported) Entered as Reported by: PATRICIA MURGUIA on 10/02/17 0738 Amlodipine Besylate (Amlodipine Besylate) 5 Mg Tablet, 5 MG PO DAILY Prescribed by: TAMMY HANNON on 02/12/18 1404 Ascorbic Acid (Ascorbic Acid) 500 Mg Tablet, 500 MG PO BID, (Reported) Entered as Reported by: ESVIN DOTSON on 02/12/18 1249 Aspirin (Aspirin EC) 81 Mg Tablet.dr, 81 MG PO DAILY, (Reported) Entered as Reported by: ESVIN DOTSON on 02/12/18 1248 Atorvastatin Calcium (Atorvastatin Calcium) 40 Mg Tablet, 40 MG PO HS, (Reported) Entered as Reported by: ESVIN DOTSON on 02/12/18 1251 Budesonide/Formoterol Fumarate (Symbicort 80-4.5 Mcg Inhaler) 10.2 Gm Hfa.aer.ad, 2 PUFF IH BID, (Reported) Entered as Reported by: PATRICIA MURGUIA on 10/02/17737 Bupropion HCl (Wellbutrin Sr) 150 Mg Tablet.er, 150 MG PO DAILY, (Reported) Entered as Reported by: PATRICIA MURGUIA on 10/02/17737 Bupropion HCl (Wellbutrin Sr) 150 Mg Tablet.er, 300 MG PO HS, (Reported) Entered as Reported by: PATRICIA MURGUIA on 10/02/17737 Buspirone HCl (Buspirone HCl) 30 Mg Tablet, 60 MG PO DAILY, (Reported) Entered as Reported by: SHAYNE LOGAN on 08/19/19 110 Clopidogrel Bisulfate (Clopidogrel) 75 Mg Tablet, 75 MG PO DAILY, (Reported) Entered as Reported by: ESVIN DOTSON on 02/12/18 124 Famotidine (Acid Sweet Potato Disintegrator (FAMOTIDINE)) 20 Mg Tablet, 20 MG PO BID Prescribed by: NAHUM MACHADO on 08/21/19 0951 Insulin Degludec (Tresiba Flextouch U-100) 100 Unit/1 Ml Insuln.pen, 20 UNIT SQ HS, (Reported) Entered as Reported by: SHAYNE LOGAN on 08/19/19 1105 Isosorbide Mononitrate (Isosorbide Mononitrate ER) 30 Mg Tab.er.24h, 30 MG PO DAILY, (Reported) Entered as Reported by: SHAYNE LOGAN on 08/19/19 110 Magnesium Oxide (Magnesium) 250 Mg Tablet, 250 MG PO HS, (Reported) Entered as Reported by: ESVIN DOTSON on 02/12/18 1247 Melatonin (Melatonin) 5 Mg Tab.ir.er, 5 MG PO HS, (Reported) Entered as Reported by: PATRICIA MURGUIA on 10/02/17 0738 Metoprolol Succinate (Toprol Xl) 50 Mg Tab.er.24h, 50 MG PO DAILY Prescribed by: TAMMY HANNON on 02/12/18 1404 Multivitamin (Men's Multi-Vitamin) 1 Each Tablet, 2 EACH PO DAILY, (Reported) Entered as Reported by: PATRICIA MURGUIA on 10/02/17 0738 Nitroglycerin (Nitroglycerin) 0.4 Mg Tab.subl, 0.4 MG SL UD PRN for CHEST PAIN Prescribed by: TAMMY HANNON on 06/08/20 0941 Review of Systems Review of Systems Constitutional: see HPI EENTM: No Symptoms Reported Respiratory: See HPI; Denies Orthopnea, Denies Shortness of Air; SOA With Exertion; Denies SOA at Rest Cardiovascular: See HPI; Denies Chest Pain, Denies Palpitations Gastrointestinal: No Symptoms Reported Genitourinary: No Symptoms Reported Musculoskeletal: no symptoms reported Skin: no symptoms reported Psychiatric/Neurological: No Symptoms Reported Endocrine: No Symptoms Reported Hematologic/Lymphatic: No Symptoms Reported Past Ahfmeag-Avlzbl-Qhksye Hx Patient Social History Tobacco Use?: No Smoking Status: Never a Smoker Substance use?: No Alcohol Use?: No Pt feels they are or have been: No Immunizations Up To Date Tetanus Booster (TDap): More than 5yrs First/Initial COVID19 Vaccinat: JULY 2020 Second COVID19 Vaccination Erci: AUGUST 2020 COVID19 Vaccine Promotions Specialist: LAZARUS Past Medical History Surgery/Hospitalization HX: 3 CARDIAC STENTS, HTN, DIABETES, ASTHMA, HYPERLIPIDEMIA, ANXIETY, DEPRESSION Coronary Stent Respiratory: Yes Asthma, Sleep Apnea Currently Using CPAP: No Cardiac: Yes Coronary Artery Disease, High Cholesterol, Hypertension Neurological: No Genitourinary: No Gastrointestinal: No Cancer: No Blood Disorders: No Adverse Reaction/Blood Tranf: No Physical Exam Vital Signs Vital Signs - First Documented 07/15/21 12:45 Pulse 85 Resp 18 B/P (MAP) 185/107 (133) Pulse Ox 98 O2 Delivery Room Air Capillary Refill : Less Than 3 Seconds Height, Weight, BMI Height: 5'4.00" Weight: 188lbs. 0.0oz. 85.454481gt; 29.00 BMI Method: General Appearance: No Apparent Distress, WD/WN HEENT: PERRL/EOMI, TMs Normal Neck: Full Range of Motion, Normal Inspection Respiratory: Normal Breath Sounds, No Accessory Muscle Use, No Respiratory Distress Cardiovascular: Regular Rate, Rhythm, Normal Peripheral Pulses Gastrointestinal: Normal Bowel Sounds, Non Tender, Soft Extremity: Normal Capillary Refill, Normal Inspection Neurologic/Psychiatric: Alert, Oriented x3 Skin: Normal Color, Warm/Dry Progress/Results/Core Measures Results/Orders Lab Results Laboratory Tests Test 07/15/21 12:54 Range/Units White Blood Count 6.3 4.3-11.0 10^3/uL Red Blood Count 5.00 4.30-5.52 10^6/uL Hemoglobin 15.2 13.3-17.7 g/dL Hematocrit 45 40-54 % Mean Corpuscular Volume 90 80-99 fL Mean Corpuscular Hemoglobin 30 25-34 pg Mean Corpuscular Hemoglobin Concent 34 32-36 g/dL Red Cell Distribution Width 12.4 10.0-14.5 % Platelet Count 233 130-400 10^3/uL Mean Platelet Volume 9.4 9.0-12.2 fL Immature Granulocyte % (Auto) 0 % Neutrophils (%) (Auto) 56 42-75 % Lymphocytes (%) (Auto) 32 12-44 % Monocytes (%) (Auto) 9 0-12 % Eosinophils (%) (Auto) 2 0-10 % Basophils (%) (Auto) 1 0-10 % Neutrophils # (Auto) 3.5 1.8-7.8 10^3/uL Lymphocytes # (Auto) 2.0 1.0-4.0 10^3/uL Monocytes # (Auto) 0.6 0.0-1.0 10^3/uL Eosinophils # (Auto) 0.2 0.0-0.3 10^3/uL Basophils # (Auto) 0.1 0.0-0.1 10^3/uL Immature Granulocyte # (Auto) 0.0 0.0-0.1 10^3/uL Prothrombin Time 12.4 12.2-14.7 SEC INR Comment 0.9 0.8-1.4 Activated Partial Thromboplast Time 31 24-35 SEC Sodium Level 137 135-145 MMOL/L Potassium Level 3.7 3.6-5.0 MMOL/L Chloride Level 100 98-107 MMOL/L Carbon Dioxide Level 25 21-32 MMOL/L Anion Gap 12 5-14 MMOL/L Blood Urea Nitrogen 16 7-18 MG/DL Creatinine 1.02 0.60-1.30 MG/DL Estimat Glomerular Filtration Rate 88 BUN/Creatinine Ratio 16 Glucose Level 262 H 70-105 MG/DL Calcium Level 9.7 8.5-10.1 MG/DL Corrected Calcium 9.4 8.5-10.1 MG/DL Magnesium Level 2.1 1.6-2.4 MG/DL Total Bilirubin 0.4 0.1-1.0 MG/DL Aspartate Amino Transf (AST/SGOT) 24 5-34 U/L Alanine Aminotransferase (ALT/SGPT) 39 0-55 U/L Alkaline Phosphatase 57 40-136 U/L Myoglobin 44.5 10.0-92.0 NG/ML Troponin I < 0.028 <0.028 NG/ML B-Type Natriuretic Peptide < 10.0 <100.0 PG/ML Total Protein 7.3 6.4-8.2 GM/DL Albumin 4.4 3.2-4.5 GM/DL My Orders Orders - CHARLENE AGUILAR APRN Cbc With Automated Diff (07/15/21 12:44) Magnesium (07/15/21 12:44) Chest 1 View, Ap/Pa Only (07/15/21 12:44) Ekg Tracing (07/15/21 12:44) Comprehensive Metabolic Panel (07/15/21 12:44) Myoglobin Serum (07/15/21 12:44) Protime With Inr (07/15/21 12:44) Partial Thromboplastin Time (07/15/21 12:44) O2 (07/15/21 12:44) Monitor-Rhythm Ecg Trace Only (07/15/21 12:44) Lipid Panel (07/16/21 06:00) Ed Iv/Invasive Line Start (07/15/21 12:44) Bnp Stella (07/15/21 12:44) Troponin I Stella (07/15/21 12:44) Aspirin Chewable Tablet (Baby Aspirin Ch (07/15/21 12:45) Clonidine Tablet (Catapres Tablet) (07/15/21 13:00) Lorazepam Injection (Ativan Injection) (07/15/21 13:15) Coronavirus Sars-Cov-2 So 2018 (07/15/21 13:09) Medications Given in ED Current Medications Medications Dose Ordered Sig/Paola Route Start Time Stop Time Status Last Admin Dose Admin Aspirin 324 mg ONCE ONCE PO 07/15/21 12:45 07/15/21 12:46 DC 07/15/21 13:02 243 MG Clonidine HCl 0.1 mg ONCE ONCE PO 07/15/21 13:00 07/15/21 13:06 DC 07/15/21 13:19 0.1 MG Lorazepam 0.5 mg ONCE PRN IVP 07/15/21 13:15 07/15/21 13:19 0.5 MG Vital Signs/I&O 07/15/21 12:45 Pulse 85 Resp 18 B/P (MAP) 185/107 (133) Pulse Ox 98 O2 Delivery Room Air Blood Pressure Mean: 133 Departure Communication (Admissions) EkG shows sinus rhythm at [address] segment change no ectopy. Impression Primary Impression: HTN (hypertension) Disposition: HOME, SELF-CARE Condition: Stable Departure-Patient Inst. Decision time for Depature: 14:13 Referrals: GALEN YOUNG (PCP) Primary Care Physician Patient Instructions: High Blood Pressure (DC) Add. Discharge Instructions: 1. Return ER for any concerns 2. Follow-up with your doctor next week 3. Take the clonidine medication up to twice a day as needed for a systolic (top number of blood pressure) of greater than or equal to 160. All discharge instructions reviewed with patient and/or family. Voiced understanding. Scripts Clonidine HCl (Clonidine HCl) 0.1 Mg Tablet 0.1 MG PO BID PRN for SBP OVER 160, #10 TAB Prov: CHARLENE AGUILAR DIRECTOR SPEECH 07/15/21 CHARLENE AGUILAR DIRECTOR SPEECH Jul 15, 2021 12:54
[2021-07-15 12:59] LABS: BASOPHILS # (AUTO) 0.1 10^3/uL (0.0-0.1); BASOPHILS % (AUTO) 1 % (0-10); EOSINOPHILS # (AUTO) 0.2 10^3/uL (0.0-0.3); EOSINOPHILS % (AUTO) 2 % (0-10); HEMATOCRIT 45 % (40-54); HEMOGLOBIN 15.2 g/dL (13.3-17.7); LYMPHOCYTES % (AUTO) 32 % (12-44); MEAN CORPUSCULAR HEMOGLOBIN 30 pg (25-34); MEAN CORPUSCULAR HGB CONC 34 g/dL (32-36); MEAN CORPUSCULAR VOLUME 90 fL (80-99); MEAN PLATELET VOLUME 9.4 fL (9.0-12.2); MONOCYTES # (AUTO) 0.6 10^3/uL (0.0-1.0); MONOCYTES % (AUTO) 9 % (0-12); NEUTROPHILS # (AUTO) 3.5 10^3/uL (1.8-7.8); NEUTROPHILS % (AUTO) 56 % (42-75); PLATELET COUNT 233 10^3/uL (130-400); WHITE BLOOD COUNT 6.3 10^3/uL (4.3-11.0)
[2021-07-15] MEDS ORDERED: cloNIDine 0.1 MG (CATAPRES) TAB PO ONE (13:00)
[2021-07-15 13:10] LABS: ALBUMIN 4.4 GM/DL (3.2-4.5); POTASSIUM 3.7 MMOL/L (3.6-5.0)
[2021-07-15 13:11] LABS: CALCIUM 9.7 MG/DL (8.5-10.1)
[2021-07-15 13:12] LABS: INR 0.9 (0.8-1.4); PROTHROMBIN TIME PATIENT 12.4 SEC (12.2-14.7)
[2021-07-15 13:13] LABS: TOTAL PROTEIN 7.3 GM/DL (6.4-8.2)
[2021-07-15 13:14] LABS: BILIRUBIN,TOTAL 0.4 MG/DL (0.1-1.0)
[2021-07-15] MEDS ORDERED: LORazepam INJ 2 MG/ML (ATIVAN) VIAL IVP PRN (13:15)
[2021-07-15 13:16] LABS: CREATININE SERUM 1.02 MG/DL (0.60-1.30)
[2021-07-15 13:19] LABS: MAGNESIUM 2.1 MG/DL (1.6-2.4)
--- NOTE | 2021-07-15 13:32 | Diagnostic Imaging Report ---
EXAMINATION: Chest 1 view HISTORY: Chest pain COMPARISON: None available. FINDINGS: Heart size and pulmonary vasculature are normal. The lungs are clear without consolidation, pleural effusion, or pneumothorax. The osseous structures are intact. IMPRESSION: 1. No acute radiographic abnormality in the chest. Dictated by: Dictated on workstation # [id number]
[2021-07-15] MEDS ORDERED: CLN.1T PO ×2 (14:15→14:57)
[2021-07-15 14:35] VITALS: BP 161/95
== END 2021-07-15 14:30 | disposition home or self-care (01) ==
LOC: EDUNIT# 12:34 → ER 12:37
DX: I10 Essential (primary) hypertension (principal); E11.9 Type 2 diabetes mellitus without complications; I25.10 Atherosclerotic heart disease of native coronary artery without angina pectoris; E78.00 Pure hypercholesterolemia, unspecified; J45.909 Unspecified asthma, uncomplicated; E78.5 Hyperlipidemia, unspecified; F41.9 Anxiety disorder, unspecified; F32.A Depression, unspecified; Z79.82 Long term (current) use of aspirin; Z95.5 Presence of coronary angioplasty implant and graft; Z79.51 Long term (current) use of inhaled steroids; Z79.4 Long term (current) use of insulin; Z79.899 Other long term (current) drug therapy
CPT/HCPCS: 36415; 71045; 80053; 83735; 83874; 83880; 84484; 85025; 85610; 85730; 87635; 93005; 93041